=== PATIENT | male | born 1970 | race American Indian/Alaskan Native ===

== ENCOUNTER 2016-08-12 14:01 | Emergency (ER) | payer OTHER ==
--- NOTE | 2016-08-12 18:24 | XRay Report ---
FINAL REPORT EXAM: XR CHEST ROUTINE 2V HISTORY: prod cough TECHNIQUE: PA and lateral chest radiographs 3 images PRIORS: None. FINDINGS: No focal consolidations are seen in the lungs and there are no pleural effusions.The cardiomediastinal silhouette is within normal limits for size and contour. No acute osseous abnormality is identified. IMPRESSION: 1. No definite radiographic evidence of acute cardiopulmonary disease. 2. No focal infiltrate is identified.
--- NOTE | 2016-08-12 20:26 | Emergency Department Report ---
HPI - General Chief Complaint: Upper Respiratory Infection Time Seen by Provider: 08/12/16 19:56 - HPI HPI: 45 y/o male complain of cough and body ache x 3 weeks .pt state the he is been taking nqyuil over the counter without any relief.pt state that he has a sore throat from constantly have to clear throat.pt denies complain of congestion .pt denies any radiation of pain .pt denies any ,n/v/d.denies any fever or chills at present. ED Past Medical Hx - Past Medical History Hx Asthma: Yes - Social History Smoking Status: Former Smoker Substance Use Type: Alcohol - Medications Home Medications: Home Medications Medication Instructions Recorded Confirmed Last Taken Type Permethrin 5% [Acticin 5% CREAM] 1 applicatio TP ONCE #60 gm 04/28/14 Unknown Rx Prednisone [Prednisone 10 mg 10 mg PO .TAPER #1 tab.ds.pk 04/28/14 Unknown Rx (6-Day Pack, 21 Tabs)] Amoxicillin/K Clav Tab [Augmentin 1 tab PO Q12HR #14 tab 08/12/16 Unknown Rx 875 mg] Ibuprofen [Motrin] 800 mg PO Q8HR PRN #15 tablet 08/12/16 Unknown Rx ED Review of Systems ROS: Stated complaint: FLU SX/LEFT SIDE NUMB/TINGLING Other details as noted in HPI Constitutional: denies: chills, fever Eyes: denies: eye pain, eye discharge, vision change ENT: congestion. denies: ear pain, throat pain Respiratory: cough. denies: shortness of breath, wheezing Cardiovascular: denies: chest pain, palpitations Endocrine: no symptoms reported Gastrointestinal: denies: abdominal pain, nausea, diarrhea Genitourinary: denies: urgency, dysuria Musculoskeletal: denies: back pain, joint swelling, arthralgia Skin: denies: rash, lesions Neurological: denies: headache, weakness, paresthesias Psychiatric: denies: anxiety, depression Hematological/Lymphatic: denies: easy bleeding, easy bruising Physical Exam - Physical Exam Vital Signs: Vital Signs 08/12/16 14:11 Temperature 98.9 F Pulse Rate 98 H Respiratory 20 Rate Blood Pressure 132/90 O2 Sat by Pulse 97 Oximetry Physical Exam: GENERAL: The patient is well-developed and well-nourished. Patient is in NAD. HENT: Normocephalic. Atraumatic. Patient has moist mucous membranes. Throat: erythema, and post nasal drip noted .Nasal turbinate swollen with edema. EYES: Extraocular motions are intact, PERRL NECK: Supple. No meningitic signs are noted. There is no adenopathy noted. CHEST/LUNGS: Clear to auscultation bilaterally. No wheezing, rales or rhonchi noted. There is no respiratory distress noted. HEART/CARDIOVASCULAR: Regular rate and rhythm. Normal S1 S2. ABDOMEN: Abdomen is soft, nontender.. Bowel sounds normoactive. There is no abdominal distention. Negative rebound tenderness. : Deferred. SKIN: There is no rash. There is no edema. There is no diaphoresis. NEURO: The patient is A&Ox3. The patient has no focal neurologic deficits. MUSCULOSKELETAL: There is no tenderness or deformity. There is no limitation range of motion. PSYCH: Pt has appropriate mood and affect. ED Course Vital Signs 08/12/16 14:11 Temperature 98.9 F Pulse Rate 98 H Respiratory 20 Rate Blood Pressure 132/90 O2 Sat by Pulse 97 Oximetry ED Medical Decision Making - Medical Decision Making sinusitis Critical care attestation.: If time is entered above; I have spent that time in minutes in the direct care of this critically ill patient, excluding procedure time. ED Disposition Clinical Impression: Sinusitis Qualifiers: Sinusitis location: frontal Chronicity: acute Recurrence: non-recurrent Qualified Code(s): J01.10 - Acute frontal sinusitis, unspecified Disposition: DISCHARGED TO HOME OR SELFCARE Is pt being admited?: No Does the pt Need Aspirin: No Condition: Stable Instructions: Sinusitis (ED) Prescriptions: Amoxicillin/K Clav Tab [Augmentin 875 mg] 1 tab PO Q12HR #14 tab Ibuprofen [Motrin] 800 mg PO Q8HR PRN #15 tablet PRN Reason: Pain Forms: Work/School Release Form(ED) Time of Disposition: 20:32
[2016-08-12 20:36] VITALS: BP 131/87
== END 2016-08-12 22:33 | disposition home or self-care (01) ==
LOC: ED 14:01
DX: J01.10 Acute frontal sinusitis, unspecified (principal); J45.909 Unspecified asthma, uncomplicated; Z87.891 Personal history of nicotine dependence
CPT/HCPCS: 71020

== ENCOUNTER 2016-11-22 09:07 | Emergency (ER) | payer SELFPAY ==
[2016-11-22 09:17] VITALS: BP 136/98
[2016-11-22] MEDS ORDERED: BENADRYL PO ONE (11:17)
[2016-11-22] MEDS ORDERED: DELTASONE PO ONE (11:17)
[2016-11-22] MEDS ORDERED: PERCOCET 5/325 PO ONE (11:17)
--- NOTE | 2016-11-22 11:55 | Emergency Department Report ---
Entered by EVELIN WOODS, acting as scribe for CHRISTELLE BUCK PA. ED Extremity Problem HPI - General Chief complaint: Extremity Problem,Nontraumatic Stated complaint: PROGESSIVE KNEE PAIN/SORE OUTBREAK Time Seen by Provider: 11/22/16 11:23 Source: patient Mode of arrival: Ambulatory Limitations: No Limitations - History of Present Illness Initial comments: 46 y/o male presents to ED c/o bilateral knee pain beginning over 1 year ago, gradually worsening. He denies injury or trauma in the past, and reports 6/10 in severity pain described as throbbing and tingling in quality. He has never followed up with an orthopedist. Pt admits to taking Advil with no relief. He denies fever, chills, or erythema to his knees as well as hip, thigh, back, abdominal, or calf pain. Pt also denies SOB, nausea, vomiting. In addition, pt c /o itching sores to his left outer and inner thigh since one month ago from an unknown cause. No additional complaints MD Complaint: joint paint (knees bilaterally) Onset/Timin -: Gradual, year(s) Location: bilateral lower extremity, knee (bilaterally) History of Same: Yes -: No myalgia, Yes arthralgia, No fever, No associated dyspnea, No associated chest pain Radiation: none Severity scale (0 -10): 6 Quality: other (throbbing, tingling) Consistency: constant Improves with: immobilization Worsens with: walking Associated Symptoms: arthralgias, other (itching sores to inner and outer thigh) . denies: denies other symptoms, chest pain, shortness of breath, fever, myalgias, rash - Related Data Previous Rx's Medication Instructions Recorded Last Taken Type Permethrin 5% [Acticin 5% CREAM] 1 applicatio TP ONCE #60 gm 04/28/14 Unknown Rx Prednisone [Prednisone 10 mg 10 mg PO .TAPER #1 tab.ds.pk 04/28/14 Unknown Rx (6-Day Pack, 21 Tabs)] Amoxicillin/K Clav Tab [Augmentin 1 tab PO Q12HR #14 tab 08/12/16 Unknown Rx 875 mg] Ibuprofen [Motrin] 800 mg PO Q8HR PRN #15 tablet 08/12/16 Unknown Rx traMADol [Ultram] 50 mg PO Q6HR PRN #20 tablet 11/22/16 Unknown Rx Allergies Allergy/AdvReac Type Severity Reaction Status Date / Time No Known Allergies Allergy Verified 04/28/14 16:41 ED Review of Systems Comment: All other systems reviewed and negative Constitutional: denies: chills, fever Respiratory: denies: cough, SOB with exertion, SOB at rest, wheezing Cardiovascular: denies: chest pain, palpitations, edema, syncope Gastrointestinal: denies: nausea, vomiting Musculoskeletal: arthralgia (knees bilaterally). denies: back pain, joint swelling, myalgia Skin: lesions (to inner and outer left thigh). denies: other (erythema) Neurological: denies: numbness, paresthesias, abnormal gait, vertigo ED Past Medical Hx - Past Medical History Previous Medical History?: Yes Hx Asthma: Yes Additional medical history: Chronic knee pain - Surgical History Past Surgical History?: No - Family History Family history: no significant - Social History Smoking Status: Current Every Day Smoker Substance Use Type: Alcohol - Medications Home Medications: Home Medications Medication Instructions Recorded Confirmed Last Taken Type Permethrin 5% [Acticin 5% CREAM] 1 applicatio TP ONCE #60 gm 04/28/14 Unknown Rx Prednisone [Prednisone 10 mg 10 mg PO .TAPER #1 tab.ds.pk 04/28/14 Unknown Rx (6-Day Pack, 21 Tabs)] Amoxicillin/K Clav Tab [Augmentin 1 tab PO Q12HR #14 tab 08/12/16 Unknown Rx 875 mg] Ibuprofen [Motrin] 800 mg PO Q8HR PRN #15 tablet 08/12/16 Unknown Rx traMADol [Ultram] 50 mg PO Q6HR PRN #20 tablet 11/22/16 Unknown Rx ED Physical Exam - General Limitations: No Limitations General appearance: alert, in no apparent distress - Head Head exam: Present: atraumatic, normocephalic - Eye Eye exam: Present: normal appearance, PERRL, EOMI. Absent: scleral icterus, conjunctival injection Pupils: Present: normal accommodation - ENT ENT exam: Present: normal exam, normal orophraynx, mucous membranes moist, TM's normal bilaterally, normal external ear exam - Neck Neck exam: Present: normal inspection, full ROM. Absent: tenderness - Respiratory Respiratory exam: Present: normal lung sounds bilaterally, other (normal work of breathing). Absent: respiratory distress, wheezes, rales, rhonchi, stridor, chest wall tenderness, accessory muscle use - Cardiovascular Cardiovascular Exam: Present: regular rate, normal rhythm, normal heart sounds. Absent: systolic murmur, diastolic murmur - GI/Abdominal GI/Abdominal exam: Present: soft, normal bowel sounds. Absent: distended, tenderness, guarding, rebound - Extremities Exam Extremities exam: Present: normal inspection, full ROM, normal capillary refill. Absent: tenderness, pedal edema, joint swelling, calf tenderness - Expanded Lower Extremity Exam Left Hip exam: Present: normal inspection, full ROM, pelvic stability. Absent: tenderness, laceration, ecchymosis, deformity, crepidus, dislocation, erythema, external rotation, internal rotation, shortening Upper Leg exam: Present: normal inspection, full ROM. Absent: tenderness, swelling, abrasion, laceration, ecchymosis, deformity, crepidus, dislocation, erythema Knee exam: Present: normal inspection, full ROM, full knee extension. Absent: tenderness, swelling, abrasion, laceration, ecchymosis, deformity, crepidus, erythema, effusion Lower Leg exam: Present: normal inspection, full ROM. Absent: tenderness, swelling, abrasion, laceration, ecchymosis, deformity, crepidus, dislocation, erythema, palpable cord, Migue's sign Ankle exam: Present: normal inspection, full ROM. Absent: tenderness, swelling , abrasion, laceration, ecchymosis, deformity, crepidus, dislocation, erythema Foot/Toe exam: Present: normal inspection, full ROM. Absent: tenderness, swelling, abrasion, laceration, ecchymosis, deformity, crepidus, dislocation, erythema, amputation, puncture wound, foreign body, calcaneal tenderness, tenderness at base of 5th metatarsal, nail avulsion, subungual hematoma Neuro vascular tendon exam: Present: no vascular compromise. Absent: pulse deficit, abnormal cap refill, motor deficit, sensory deficit, tendon deficit, extremity cold to touch, pallor, abnormal 2-point discrimination, decreased fine /light touch, foot drop, peroneal nerve deficit, significant pain with passive ROM of distal joint Gait: Positive: observed and normal Right Hip exam: Present: normal inspection, full ROM. Absent: tenderness Upper Leg exam: Present: normal inspection, full ROM. Absent: tenderness, swelling, abrasion, laceration, ecchymosis, deformity, crepidus, dislocation, erythema Knee exam: Present: normal inspection, full ROM, full knee extension. Absent: tenderness, swelling, abrasion, laceration, ecchymosis, deformity, crepidus, dislocation, erythema, effusion Lower Leg exam: Present: normal inspection, full ROM. Absent: tenderness, swelling, abrasion, laceration, ecchymosis, deformity, crepidus, dislocation, erythema, palpable cord, Migue's sign Ankle exam: Present: normal inspection. Absent: full ROM, tenderness, swelling , abrasion, laceration, ecchymosis, deformity, crepidus, dislocation, erythema Foot/Toe exam: Present: normal inspection, full ROM. Absent: tenderness, swelling, abrasion, laceration, ecchymosis, deformity, crepidus, dislocation, erythema, amputation, puncture wound, foreign body, calcaneal tenderness, tenderness at base of 5th metatarsal, nail avulsion, subungual hematoma Neuro vascular tendon exam: Present: no vascular compromise. Absent: pulse deficit, abnormal cap refill, motor deficit, sensory deficit, tendon deficit, extremity cold to touch, pallor, abnormal 2-point discrimination, decreased fine /light touch, foot drop, peroneal nerve deficit, significant pain with passive ROM of distal joint Gait: Positive: observed and normal - Back Exam Back exam: Present: normal inspection, full ROM. Absent: tenderness, CVA tenderness (R), CVA tenderness (L), muscle spasm, paraspinal tenderness, vertebral tenderness, rash noted - Neurological Exam Neurological exam: Present: alert, oriented X3, normal gait, reflexes normal. Absent: motor sensory deficit - Psychiatric Psychiatric exam: Present: normal affect, normal mood - Skin Skin exam: Present: warm, dry, intact, normal color, rash (already healing), other (scabbed over lesions to left inner and outer thigh, dried with no signs of infection, no erythema, no induration, no fluctuance). Absent: erythema, abrasion ED Course Vital Signs 11/22/16 09:11 Temperature 98.2 F Pulse Rate 74 Respiratory 16 Rate Blood Pressure 136/98 O2 Sat by Pulse 96 Oximetry - Reevaluation(s) Reevaluation #1: 11/22/16 11:48 Patient given benadryl 50 mg, percocet 5/325 mg 2 tabs , Deltasone 60 mg po 11/22/16 11:49 ED Medical Decision Making - Medical Decision Making ED Course: Patient here with arthralgia both knees which is chronic and rash that is healing. patient given benadryl 50 mg, percocet 5/325 mg 2 tabs , Deltasone 60 mg po . ED Disposition Clinical Impression: Arthralgia of both knees, Chronic pain of both knees Disposition: DISCHARGED TO HOME OR SELFCARE Is pt being admited?: No Does the pt Need Aspirin: No Condition: Stable Instructions: Arthralgia (ED), Knee Exercises (GEN) Additional Instructions: Please follow up with orthopedic doctor for further evaluation of chronic knee pain Take Ultram as prescribed Prescriptions: traMADol [Ultram] 50 mg PO Q6HR PRN #20 tablet PRN Reason: Pain Referrals: PRIMARY CARE,MD [Primary Care Provider] - 3-5 Days Forms: Accompanied Note, Work/School Release Form(ED) This documentation as recorded by the PEGGY harris AHSAN,accurately reflects the service I personally performed and the decisions made by me,CHRISTELLE BUCK PA.
== END 2016-11-22 12:00 | disposition home or self-care (01) ==
LOC: ED 09:07
DX: M25.561 Pain in right knee (principal); M25.562 Pain in left knee; G89.29 Other chronic pain; J45.909 Unspecified asthma, uncomplicated; F17.200 Nicotine dependence, unspecified, uncomplicated
CPT/HCPCS: 99282; J7512

== ENCOUNTER 2017-11-02 21:21 | Observation (INO) | payer OTHER ==
[2017-11-02] MEDS ORDERED: ATROVENT IH ONE (21:27)
[2017-11-02] MEDS ORDERED: ADRENALIN SUB-Q ONE (21:27)
[2017-11-02] MEDS ORDERED: PROVENTIL IH ONE (21:27)
[2017-11-02] MEDS ORDERED: NACL 0.9% 500 ML 500 ML IV ONE (21:28)
--- NOTE | 2017-11-02 21:39 | Emergency Department Report ---
ED Asthma HPI - General Chief Complaint: Dyspnea/Respdistress Stated Complaint: ANGELA Time Seen by Provider: 11/02/17 21:27 Source: patient, family, EMS (ems notes not available at time of chart dictation) Limitations: Physical Limitation - History of Present Illness Initial Comments: This is a 47-year-old male who is previously known to this provider, brought to the hospital by EMS on positive pressure ventilation for out of hospital asthma attack. Patient given albuterol, steroids, magnesium. Patient indicates chest wall pain with coughing. He further indicates no pulmonary embolus or DVT risk factors. He is continued on BiPAP therapy, given subcutaneous epinephrine, and supportive care. All of the aforementioned greatly improved his symptoms. MD Complaint: "asthma attack", shortness of breath, other -: Gradual Severity: severe Associated Symptoms: dry cough Treatments Prior to Arrival: inhaled bronchodilator, IV steroid, oxygen, CPAP, other (magnesium) - Related Data Previous Rx's Medication Instructions Recorded Last Taken Type Permethrin 5% [Acticin 5% CREAM] 1 applicatio TP ONCE #60 gm 04/28/14 Unknown Rx Prednisone [Prednisone 10 mg 10 mg PO .TAPER #1 tab.ds.pk 04/28/14 Unknown Rx (6-Day Pack, 21 Tabs)] Amoxicillin/K Clav Tab [Augmentin 1 tab PO Q12HR #14 tab 08/12/16 Unknown Rx 875 mg] Ibuprofen [Motrin] 800 mg PO Q8HR PRN #15 tablet 08/12/16 Unknown Rx traMADol [Ultram] 50 mg PO Q6HR PRN #20 tablet 11/22/16 Unknown Rx Allergies Allergy/AdvReac Type Severity Reaction Status Date / Time No Known Allergies Allergy Verified 04/28/14 16:41 ED Review of Systems ROS: Stated complaint: ANGELA Other details as noted in HPI Comment: Unobtainable due to pts medical conditions ED Past Medical Hx - Past Medical History Hx Asthma: Yes Additional medical history: Chronic knee pain - Social History Smoking Status: Current Every Day Smoker Substance Use Type: Alcohol - Medications Home Medications: Home Medications Medication Instructions Recorded Confirmed Last Taken Type Permethrin 5% [Acticin 5% CREAM] 1 applicatio TP ONCE #60 gm 04/28/14 Unknown Rx Prednisone [Prednisone 10 mg 10 mg PO .TAPER #1 tab.ds.pk 04/28/14 Unknown Rx (6-Day Pack, 21 Tabs)] Amoxicillin/K Clav Tab [Augmentin 1 tab PO Q12HR #14 tab 08/12/16 Unknown Rx 875 mg] Ibuprofen [Motrin] 800 mg PO Q8HR PRN #15 tablet 08/12/16 Unknown Rx traMADol [Ultram] 50 mg PO Q6HR PRN #20 tablet 11/22/16 Unknown Rx ED Physical Exam - General General appearance: alert, in distress - Head Head exam: Present: atraumatic, normocephalic - Eye Eye exam: Present: normal appearance - ENT ENT exam: Present: mucous membranes moist - Neck Neck exam: Present: normal inspection - Respiratory Respiratory exam: Present: respiratory distress, wheezes, accessory muscle use - Cardiovascular Cardiovascular Exam: Present: normal rhythm, tachycardia, normal heart sounds. Absent: systolic murmur, diastolic murmur, rubs, gallop - GI/Abdominal GI/Abdominal exam: Present: soft, normal bowel sounds. Absent: distended, tenderness, guarding, rebound, rigid, pulsatile mass - Rectal Rectal exam: Present: deferred - Extremities Exam Extremities exam: Present: normal inspection, full ROM, normal capillary refill. Absent: pedal edema, joint swelling, calf tenderness - Back Exam Back exam: Present: normal inspection, full ROM. Absent: tenderness, CVA tenderness (R), paraspinal tenderness, vertebral tenderness - Neurological Exam Neurological exam: Present: alert, CN II-XII intact, other (Extraocular movements intact. Tongue midline. No facial droop. Facial sensation intact to light touch in the V1, V2, V3 distribution bilaterally. 5 and 5 strength in 4 extremities.. Sensation is intact to light touch in 4 extremities.). Absent : motor sensory deficit - Psychiatric Psychiatric exam: Present: anxious - Skin Skin exam: Present: warm, dry, intact, normal color. Absent: rash ED Course Vital Signs 11/02/17 11/02/17 11/02/17 21:23 21:24 21:30 Temperature Pulse Rate 110 H 108 H Respiratory 24 21 Rate Blood Pressure 150/87 150/87 Blood Pressure [Right] O2 Sat by Pulse 99 100 100 Oximetry 11/02/17 11/02/17 11/02/17 21:36 21:46 22:00 Temperature 98.1 F Pulse Rate 114 H 107 H 101 H Respiratory 28 H 21 20 Rate Blood Pressure 150/80 150/87 146/81 Blood Pressure 150/80 [Right] O2 Sat by Pulse 100 100 100 Oximetry 11/02/17 11/02/17 11/02/17 22:16 22:30 22:46 Temperature Pulse Rate 94 H 96 H 95 H Respiratory 20 21 17 Rate Blood Pressure 146/81 146/81 146/81 Blood Pressure [Right] O2 Sat by Pulse 100 100 100 Oximetry 11/02/17 11/02/17 11/02/17 22:48 22:52 23:00 Temperature Pulse Rate 94 H 101 H Respiratory 18 20 16 Rate Blood Pressure 128/80 Blood Pressure [Right] O2 Sat by Pulse 100 99 98 Oximetry - Reevaluation(s) Reevaluation #1: 11/02/17 23:51 The Hospital physician, Dr. Garcia, accepted the patient to the medical service. ED Medical Decision Making - Lab Data Result diagrams: 11/02/17 21:45 11/02/17 21:45 Vital Signs 11/02/17 11/02/17 11/02/17 21:24 21:36 22:48 Temperature 98.1 F Pulse Rate 110 H 114 H Respiratory 24 28 H 18 Rate Blood Pressure 150/87 150/80 Blood Pressure 150/80 [Right] O2 Sat by Pulse 100 100 100 Oximetry Lab Results 11/02/17 11/02/17 11/02/17 Range/Units 21:45 21:45 21:45 WBC 14.2 H (4.5-11.0) K/mm3 RBC 4.63 (3.65-5.03) M/mm3 Hgb 13.3 (11.8-15.2) gm/dl Hct 40.0 (35.5-45.6) % MCV 87 (84-94) fl MCH 29 (28-32) pg MCHC 33 (32-34) % RDW 13.0 L (13.2-15.2) % Plt Count 167 (140-440) K/mm3 Lymph % (Auto) 19.9 (13.4-35.0) % [place] % (Auto) 7.6 H (0.0-7.3) % Eos % (Auto) 1.5 (0.0-4.3) % Baso % (Auto) 0.7 (0.0-1.8) % Lymph # 2.8 (1.2-5.4) K/mm3 [place] # 1.1 H (0.0-0.8) K/mm3 Eos # 0.2 (0.0-0.4) K/mm3 Baso # 0.1 (0.0-0.1) K/mm3 Seg Neutrophils % 70.3 H (40.0-70.0) % Seg Neutrophils # 10.0 H (1.8-7.7) K/mm3 PT (12.2-14.9) Sec. INR (0.87-1.13) APTT (24.2-36.6) Sec. Sodium 139 (137-145) mmol/L Potassium 3.9 (3.6-5.0) mmol/L Chloride 101.1 (98-107) mmol/L Carbon Dioxide 24 (22-30) mmol/L Anion Gap 18 mmol/L BUN 14 (9-20) mg/dL Creatinine 0.8 (0.8-1.5) mg/dL Estimated GFR > 60 ml/min BUN/Creatinine Ratio 18 % Glucose 94 (75-100) mg/dL Lactic Acid 1.10 (0.7-2.0) mmol/L Calcium 8.9 (8.4-10.2) mg/dL Magnesium 2.50 H (1.7-2.3) mg/dL Total Bilirubin 0.20 (0.1-1.2) mg/dL AST 22 (5-40) units/L ALT 19 (7-56) units/L Alkaline Phosphatase 47 (35-129) units/L Troponin T < 0.010 (0.00-0.029) ng/mL Total Protein 7.1 (6.3-8.2) g/dL Albumin 4.3 (3.9-5) g/dL Albumin/Globulin Ratio 1.5 % /17/18 Range/Units 21:45 WBC (4.5-11.0) K/mm3 RBC (3.65-5.03) M/mm3 Hgb (11.8-15.2) gm/dl Hct (35.5-45.6) % MCV (84-94) fl MCH (28-32) pg MCHC (32-34) % RDW (13.2-15.2) % Plt Count (140-440) K/mm3 Lymph % (Auto) (13.4-35.0) % [place] % (Auto) (0.0-7.3) % Eos % (Auto) (0.0-4.3) % Baso % (Auto) (0.0-1.8) % Lymph # (1.2-5.4) K/mm3 [place] # (0.0-0.8) K/mm3 Eos # (0.0-0.4) K/mm3 Baso # (0.0-0.1) K/mm3 Seg Neutrophils % (40.0-70.0) % Seg Neutrophils # (1.8-7.7) K/mm3 PT 13.2 (12.2-14.9) Sec. INR 0.95 (0.87-1.13) APTT 29.8 (24.2-36.6) Sec. Sodium (137-145) mmol/L Potassium (3.6-5.0) mmol/L Chloride (98-107) mmol/L Carbon Dioxide (22-30) mmol/L Anion Gap mmol/L BUN (9-20) mg/dL Creatinine (0.8-1.5) mg/dL Estimated GFR ml/min BUN/Creatinine Ratio % Glucose (75-100) mg/dL Lactic Acid (0.7-2.0) mmol/L Calcium (8.4-10.2) mg/dL Magnesium (1.7-2.3) mg/dL Total Bilirubin (0.1-1.2) mg/dL AST (5-40) units/L ALT (7-56) units/L Alkaline Phosphatase (35-129) units/L Troponin T (0.00-0.029) ng/mL Total Protein (6.3-8.2) g/dL Albumin (3.9-5) g/dL Albumin/Globulin Ratio % - EKG Data -: EKG Interpreted by Tn - EKG Data When compared to previous EKG there are: previous EKG unavailable 11/02/17 22:55 Sinus, 92 bpm, normal axis, nonspecific ST elevation, pericarditis versus early repolarization. Not consistent with a STEMI - Radiology Data Radiology results: report reviewed, image reviewed X-RAY OF THE CHEST IS NEGATIVE FOR ACUTE DISEASE. - Medical Decision Making Differential diagnosis, including but not limited to: Asthma, bronchitis, status epilepticus Assessment and plan: 47-year-old male with known pulmonary embolus or DVT risk factors, low risk by well's criteria, multiple hospitalizations in the past for asthma, with his typical asthma exacerbation. He is continued on positive pressure ventilation, he is given steroids and magnesium prior to arrival, given subcutaneous epinephrine. He declined/refused an arterial blood gas. His clinical status was improved, and he was able to be weaned from positive pressure ventilation. He is still wheezing and short of breath, and he will therefore be admitted to the hospital for asthma exacerbation. The Hospital physician has been paged to facilitate admission. Critical Care Time: Yes Critical care time in (mins) excluding proc time.: 35 Critical care attestation.: If time is entered above; I have spent that time in minutes in the direct care of this critically ill patient, excluding procedure time. ED Disposition Clinical Impression: Status asthmaticus Qualifiers: Asthma severity: severe Asthma persistence: unspecified Qualified Code(s): J45.902 - Unspecified asthma with status asthmaticus Disposition: 09 OP ADMIT IP TO THIS HOSP Is pt being admited?: Yes Condition: Good Referrals: ELO MORGAN MD [Primary Care Provider] - 3-5 Days
[2017-11-02 22:00] LABS: Basophils # (Auto) 0.1 K/mm3 (0.0-0.1); Basophils % (Auto) 0.7 % (0.0-1.8); Eosinophils # (Auto) 0.2 K/mm3 (0.0-0.4); Eosinophils % (Auto) 1.5 % (0.0-4.3); Hemoglobin 13.3 gm/dl (11.8-15.2); Lymphocytes # (Auto) 2.8 K/mm3 (1.2-5.4); Lymphocytes % (Auto) 19.9 % (13.4-35.0); Mean Corpuscular HGB Conc 33 % (32-34); Mean Corpuscular Hemoglobin 29 pg (28-32); Mean Corpuscular Volume 87 fl (84-94); Monocytes # (Auto) 1.1 K/mm3 (0.0-0.8); Monocytes % (Auto) 7.6 % (0.0-7.3); Platelet Count 167 K/mm3 (140-440); Red Blood Count 4.63 M/mm3 (3.65-5.03)
--- NOTE | 2017-11-02 22:08 | XRay Report ---
FINAL REPORT PROCEDURE: XR CHEST 1V AP TECHNIQUE: Chest radiograph anteroposterior view. CPT 84633 HISTORY: Dyspnea COMPARISON: No prior studies are available for comparison. FINDINGS: Heart: Normal. Mediastinum/Vessels: Normal. Lungs/Pleural space: Normal. Bony thorax: No acute osseous abnormality. Life support devices: None. IMPRESSION: No acute cardiopulmonary abnormality.
[2017-11-02 22:11] LABS: INR 0.95 (0.87-1.13)
[2017-11-02 22:12] LABS: Partial Thromboplastin Time 29.8 Sec. (24.2-36.6)
[2017-11-02 22:16] LABS: Alanine Aminotransferase 19 units/L (7-56); Albumin 4.3 g/dL (3.9-5); BUN/Creatinine Ratio 18; Blood Urea Nitrogen 14 mg/dL (9-20); Calcium 8.9 mg/dL (8.4-10.2); Hemolysis Index 11
[2017-11-03] MEDS ORDERED: SUBLIMAZE IV ONE (00:12)
[2017-11-03] MEDS ORDERED: TORADOL IV ONE (00:12)
[2017-11-03] MEDS: PROVENTIL IH ONE ×2 (00:16→00:19)
[2017-11-03] MEDS ORDERED: TYLENOL PO PRN (01:16)
[2017-11-03] MEDS ORDERED: ULTRAM PO PRN (01:18)
[2017-11-03] MEDS ORDERED: MOTRIN PO PRN (01:18)
[2017-11-03] MEDS ORDERED: NON-FORMULARY (Prednisone [Prednisone 10 Mg (6-Day Pack, 21 Tabs)] 10 MG) PO SCH (01:30)
[2017-11-03] MEDS ORDERED: ACTICIN TP SCH (02:00)
[2017-11-03] MEDS ORDERED: DELTASONE PO SCH ×2 (07:30→14:00)
[2017-11-03] MEDS: PROVENTIL IH PRN ×2 (07:30→11:41)
[2017-11-03] MEDS ORDERED: AUGMENTIN 875 MG PO SCH (10:00)
[2017-11-03] MEDS ORDERED: LEVAQUIN 750MG/150ML 750 MG/150 ML BAG IV SCH (10:00)
--- NOTE | 2017-11-03 10:17 | History and Physical Report ---
CHIEF COMPLAINT: Shortness of breath. HISTORY OF PRESENT ILLNESS: The patient is a 47-year-old male who feels he started suddenly to have shortness of breath yesterday. The patient stated the shortness of breath was associated with cough and chest discomfort. There was no history of fever, no history of chills. Also, the patient denied history of nausea and vomiting and EMS was called and evaluated. The patient was placed on BiPAP and transported into the Emergency Room where he was evaluated and given treatment, but the shortness of breath and wheezing persisted and the patient was presented for admission. PAST MEDICAL HISTORY: Pertinent for asthma. Also, the patient has past medical history of knee pain. FAMILY HISTORY: Noncontributory. SOCIAL HISTORY: The patient drinks alcohol, smokes cigarettes, does not use illicit drugs. MEDICATIONS: The patient is on ____ cream, which he has had applied topically once and also the patient is on prednisone dose pack 10 mg as a 6 days pack. The patient is also on Augmentin 875 mg 1 by mouth every 12 hours and ibuprofen 800 mg by mouth every 8 hours and tramadol 50 mg by mouth every 6 hours. ALLERGIES: There are no known drug allergies. REVIEW OF SYSTEMS: CONSTITUTIONAL: There is no fever, no chills, no diaphoresis. HEENT: There is no headache or sore throat. CARDIOVASCULAR SYSTEM: There is chest discomfort, but no orthopnea. RESPIRATORY SYSTEM: There is shortness of breath and there is cough and there is wheezing. GASTROINTESTINAL SYSTEM: There is no nausea, no vomiting, no abdominal pain, diarrhea or constipation. NEUROLOGICAL SYSTEM: There is no numbness, no dizziness, no altered mental status. MUSCULOSKELETAL SYSTEM: There is no joint pain or swelling. DERMATOLOGICAL SYSTEM: There is no skin rash or itching. GENITOURINARY SYSTEM: There is no dysuria, hematuria, or flank pain. Rest of system review is normal. PHYSICAL EXAMINATION: GENERAL: At the time of exam, the patient was trying to be alert, oriented x 3 and not in acute distress. VITAL SIGNS: Vital signs shows normal temperature of 97.7 degrees Fahrenheit, pulse of 99, respiration rate of 16, blood pressure 101/62, O2 sat of 95% on room air. HEENT: Exam show pupils to be equal, round, reactive to light and accommodation. Extraocular muscles are intact. NECK: Supple with no JVD or carotid bruit. CARDIOVASCULAR SYSTEM: Showed normal first and second heart sounds with no gallops or murmur. RESPIRATORY SYSTEM: Show good air entry on both sides of the lungs with mild respiratory wheezing. GASTROINTESTINAL SYSTEM: Show abdomen to be full, soft, nontender with no organomegaly or rigidity. NEUROLOGICAL: Shows no focal deficits. MUSCULOSKELETAL SYSTEM: Show no joint swelling or tenderness. DERMATOLOGICAL: Showing no skin rash. GENITOURINARY: Showing no costovertebral angle tenderness. PERTINENT LABORATORY DATA AND IMAGING STUDIES: The patient has CBC done with elevated white count of 14,200 with normal hemoglobin, normal hematocrit and normal platelet count with CBC differential showing elevated monocyte count of 7.6% and high segmented neutrophil count of 70.3% with normal coagulation studies. The patient's chemistry showed normal value ____, elevated value of magnesium of 2.5. IMAGING STUDIES: The patient has chest x-ray done that shows no acute cardiopulmonary abnormality. DIAGNOSIS: Asthma exacerbation. PLAN: The patient will be placed on observation in the medical floor and will be on IV Solu-Medrol 60 mg every 8 hours. The patient will also be on IV Levaquin 750 mg daily and will be on albuterol nebulizer every 4 hours as needed for shortness of breath and wheezing. The patient will be on p.r.n. medications like Tylenol 650 mg every 4 hours for fever and headache and will be on oxygen by nasal cannula at 2 liters per minute and the patient's medication has been reconciled and applied accordingly. The patient's diet will be regular diet. JOB# [id number] OCN/NTS
--- NOTE | 2017-11-03 14:14 | Discharge Summary ---
Providers - Providers Date of Admission: 11/03/17 01:11 Date of discharge: 11/03/17 Attending physician: VIC WATSON Primary care physician: ELO MORGAN Hospitalization Condition: Good Pertinent studies: Chest x-ray: No infiltrates Hospital course: This is a 47-year-old male with a history of asthma presented to the hospital by EMS with the BiPAP for worsening breathing difficulty. Patient was continued on BiPAP, given albuterol, steroids, magnesium, subcutaneous epinephrine in the ER. Patient also complains of chest wall pain with coughing. His chest x-ray showed no infiltrates. He was admitted to the hospital in observation status for further management and evaluation. He was weaned off from the BiPAP, placed on frequent nebs, empiric Steroids and antibiotics. His symptom improved significantly overnight, he denies any difficulty breathing, or chest pain. He wanted to go home and follow up with his primary care doctor [facility] [facility]. He was discharged home in stable condition. Discharge diagnosis: Acute severe asthma exacerbation, resolved Acute respiratory failure due to asthma exacerbation, resolved SIRS, due to asthma exacerbation Physical exam: GENERAL: well-developed and well-nourished male lying on bed appeared to be in no discomfort. HEENT: Normocephalic. Atraumatic. No conjunctival congestion or icterus. Patient has moist mucous membranes. NECK: Supple. Trachea midline. CHEST/LUNGS: Clear to auscultated bilaterally, breathing nonlabored. No wheezes crackles or rhonchi. HEART/CARDIOVASCULAR: Regular in rate and rhythm. S1 and S2 positive. ABDOMEN: Abdomen is soft, nontender. Patient has normal bowel sounds. SKIN: There is no rash. Warm and dry. NEURO: No focal motor deficit. Follows command. MUSCULOSKELETAL: No joint effusion or tenderness. EXTRIMITY: No edema, no cyanosis or clubbing. PSYCH: Cooperative. Disposition: DC- TO HOME OR SELFCARE Time spent for discharge: 32 minutes Core Measure Documentation - Palliative Care Palliative Care/ Comfort Measures: Not Applicable - Core Measures Any of the following diagnoses?: none Exam - Constitutional Vitals: Temp Pulse Resp BP Pulse Ox 97.9 F 106 H 18 115/70 96 11/03/17 07:41 11/03/17 11:53 11/03/17 11:53 11/03/17 07:41 11/03/17 07:41 Plan Activity: advance as tolerated Weight Bearing Status: Weight Bear as Tolerated Diet: low fat, low salt Additional Instructions: Follow-up at [facility] in 1 week Follow up with: ELO MORGAN MD [Primary Care Provider] - 3-5 Days Prescriptions: Budesonide/Formoterol Fumarate [Symbicort 160-4.5 Mcg Inhaler] 10.2 gm IH BID 30 Days hfa.aer.ad Levofloxacin [Levaquin TAB] 750 mg PO DAILY #5 tablet predniSONE [Deltasone] 50 mg PO QDAY #5 tab
[2017-11-03 16:02] VITALS: BP 124/73
[2017-11-04] MEDS ORDERED: DELTASONE PO SCH (07:30)
[2017-11-04] MEDS ORDERED: LEVAQUIN PO SCH (10:00)
[2017-11-04] MEDS ORDERED: DELTASONE PO ONE (22:00)
[2017-11-05] MEDS ORDERED: DELTASONE PO SCH (07:30)
[2017-11-06] MEDS ORDERED: DELTASONE PO SCH (07:30)
[2017-11-07] MEDS ORDERED: DELTASONE PO SCH (07:30)
[2017-11-08] MEDS ORDERED: DELTASONE PO ONE (07:30)
== END 2017-11-03 17:55 | disposition home or self-care (01) ==
LOC: ED 21:21 → 3A 11-03 01:11
PROVIDERS: ADMIT Internal Medicine; ATTEND Internal Medicine
DX: J45.901 Unspecified asthma with (acute) exacerbation (principal); J96.00 Acute respiratory failure, unspecified whether with hypoxia or hypercapnia; R65.10 Systemic inflammatory response syndrome (SIRS) of non-infectious origin without acute organ dysfunction; G89.29 Other chronic pain; M25.569 Pain in unspecified knee; F17.210 Nicotine dependence, cigarettes, uncomplicated; Z99.89 Dependence on other enabling machines and devices
CPT/HCPCS: 36415; 71045; 80053; 82140; 83735; 84484; 85025; 85610; 85730; 93005; 93010; 94640; 96365; 96372; 96375; 96376; 99291; 99406; G0378; J0171; J1885; J1956; J2930; J3010

== ENCOUNTER 2019-05-17 19:05 | Observation (INO) | payer OTHER ==
[2019-05-17] MEDS ORDERED: IPRATROPIUM 0.02% NEBU 2.5 ML IH ONE (19:31)
[2019-05-17] MEDS ORDERED: ALBUTEROL 2.5 MG/3 ML NEBU IH ONE (19:31)
[2019-05-17] MEDS ORDERED: methylPREDNISolone Sod Succinate 125 MG/2 ML INJ IV ONE (19:31)
--- NOTE | 2019-05-17 19:32 | Event Note ---
ED Screening Note Date of service: 05/17/19 Time: 19:27 ED Screening Note: c/o cough, sneezing, runny nose x yesterday states SOB that feels like his asthma cough is productive with yellow phlegm +chills/sweats +former smoker This initial assessment/diagnostic orders/clinical plan/treatment(s) is/are subject to change based on patients health status, clinical progression and re- assessment by fellow clinical providers in the ED. Further treatment and workup at subsequent clinical providers discretion. Patient/guardian urged not to elope from the ED as their condition may be serious if not clinically assessed and managed. Initial orders include:
[2019-05-17 20:37] LABS: Hematocrit 38.8 % (35.5-45.6); Hemoglobin 12.9 gm/dl (11.8-15.2); Red Blood Count 4.51 M/mm3 (3.65-5.03)
[2019-05-17 20:38] LABS: Mean Corpuscular HGB Conc 33 % (32-34); Mean Corpuscular Volume 86 fl (84-94); Platelet Count 152 K/mm3 (140-440); Red Cell Distribution Width 13.7 % (13.2-15.2)
[2019-05-17] MEDS ORDERED: MAGNESIUM SULFATE 2 GM/50 ML BAG IV ONE (20:56)
--- NOTE | 2019-05-17 21:00 | Emergency Department Report ---
ED Shortness of Breath HPI - General Chief Complaint: Adult Asthma Stated Complaint: ASTHMA,FLU LIKE SYMPTOMS Time Seen by Provider: 05/17/19 19:27 Source: patient Mode of arrival: Ambulatory Limitations: No Limitations - History of Present Illness Initial Comments: Patient is a 48-year-old male that presents emergency room with complaints of shortness of breath and flu-like symptoms. Patient states he's having fever and chills, sore throat, runny nose, sneezing, coughing and difficulties breathing. Patient states she has asthma. Patient states his symptoms been going on for 2 days. Patient states his amylase at home are not helping. Patient states his symptoms are better with rest and worse with exertion. Patient states he did not take a flu shot this year. Patient states she is now out of asthma medications. Patient denies chest pain. Patient denies nausea vomiting. MD Complaint: shortness of breath, cough -: Sudden Consistency: constant Improves With: rest Worsens With: exertion Known History Of: asthma Context: recent URI Associated Symptoms: fever, cough Treatments Prior to Arrival: bronchodilator - Related Data Home Oxygen Therapy: No Home Medications Medication Instructions Recorded Confirmed Last Taken ALBUTEROL Inhaler 2 puff INHALATION Q4HR PRN 11/03/17 11/03/17 Unknown Previous Rx's Medication Instructions Recorded Last Taken Type Budesonide/Formoterol Fumarate 10.2 gm IH BID 30 Days hfa.aer.ad 11/03/17 Unknown Rx [Symbicort 160-4.5 Mcg Inhaler] levoFLOXacin [Levaquin TAB] 750 mg PO DAILY #5 tablet 11/03/17 Unknown Rx predniSONE [Deltasone] 50 mg PO QDAY #5 tab 11/03/17 Unknown Rx Allergies Allergy/AdvReac Type Severity Reaction Status Date / Time No Known Allergies Allergy Verified 04/28/14 16:41 ED Review of Systems ROS: Stated complaint: ASTHMA,FLU LIKE SYMPTOMS Other details as noted in HPI Constitutional: chills, fever Eyes: denies: eye pain, eye discharge, vision change ENT: throat pain. denies: ear pain Respiratory: cough, shortness of breath, SOB with exertion, SOB at rest, wheezing Cardiovascular: denies: chest pain, palpitations Endocrine: no symptoms reported Gastrointestinal: denies: abdominal pain, nausea, diarrhea Genitourinary: denies: urgency, dysuria Musculoskeletal: denies: back pain, joint swelling, arthralgia Skin: denies: rash, lesions Neurological: denies: headache, weakness, paresthesias Psychiatric: denies: anxiety, depression Hematological/Lymphatic: denies: easy bleeding, easy bruising ED Past Medical Hx - Past Medical History Previous Medical History?: Yes Hx Hypertension: No Hx CVA: No Hx Heart Attack/AMI: No Hx Congestive Heart Failure: No Hx Diabetes: No Hx Deep Vein Thrombosis: No Hx Pulmonary Embolism: No Hx GERD: No Hx Liver Disease: No Hx Renal Disease: No Hx Sickle Cell Disease: No Hx Arthritis: No Hx Headaches / Migraines: No Hx Seizures: No Hx Kidney Stones: No Hx Psychiatric Treatment: No Hx Asthma: Yes Hx COPD: No Hx Tuberculosis: No Hx Dementia: No Hx HIV: No Additional medical history: Chronic knee pain - Surgical History Past Surgical History?: No Hx Coronary Stent: No Hx Open Heart Surgery: No Hx Pacemaker: No Hx Internal Defibrillator: No Hx Cholecystectomy: No Hx Appendectomy: No Hx Breast Surgery: No - Family History Family history: no significant - Social History Smoking Status: Former Smoker Substance Use Type: None - Medications Home Medications: Home Medications Medication Instructions Recorded Confirmed Last Taken Type ALBUTEROL Inhaler 2 puff INHALATION Q4HR PRN 11/03/17 11/03/17 Unknown History Budesonide/Formoterol Fumarate 10.2 gm IH BID 30 Days hfa.aer.ad 11/03/17 Unknown Rx [Symbicort 160-4.5 Mcg Inhaler] levoFLOXacin [Levaquin TAB] 750 mg PO DAILY #5 tablet 11/03/17 Unknown Rx predniSONE [Deltasone] 50 mg PO QDAY #5 tab 11/03/17 Unknown Rx ED Physical Exam - General Limitations: No Limitations General appearance: alert, in distress - Head Head exam: Present: atraumatic, normocephalic - Eye Eye exam: Present: normal appearance - ENT ENT exam: Present: mucous membranes moist - Neck Neck exam: Present: normal inspection - Respiratory Respiratory exam: Present: respiratory distress, wheezes - Cardiovascular Cardiovascular Exam: Present: regular rate, normal rhythm. Absent: systolic murmur, diastolic murmur, rubs, gallop - GI/Abdominal GI/Abdominal exam: Present: soft, normal bowel sounds - Rectal Rectal exam: Present: deferred - Extremities Exam Extremities exam: Present: normal inspection - Back Exam Back exam: Present: normal inspection - Neurological Exam Neurological exam: Present: alert, oriented X3 - Psychiatric Psychiatric exam: Present: normal affect, normal mood - Skin Skin exam: Present: warm, dry, intact, normal color. Absent: rash ED Course Vital Signs 05/17/19 05/17/19 19:08 19:47 Temperature 98.8 F Pulse Rate 102 H Pulse Rate [ 91 H Anterior Bilateral Throughout] Respiratory 20 Rate Respiratory 20 Rate [Anterior Bilateral Throughout] Blood Pressure 135/89 O2 Sat by Pulse 92 Oximetry - Reevaluation(s) Reevaluation #1: pt still wheezing. Patient will be given another breathing treatment. I discussed all results with patient. I discussed plan of care with patient. Patient agrees with plan of care. Patient will be admitted to the hospital service. 05/17/19 21:47 - Consultations Consultation #1: Hospitalist consult for admission. Hospitalist admit patient. 05/17/19 21:56 ED Medical Decision Making - Lab Data Result diagrams: 05/17/19 20:17 05/17/19 20:17 - Radiology Data Radiology results: report reviewed, image reviewed interpreted by me: No acute findings on chest x-ray - Medical Decision Making Patient is a 48-year-old male with known asthma presents emergency room with complaints of shortness of breath and difficulty breathing as well as flulike symptoms. Patient found to be in status asthmaticus. Patient given multiple medications. Patient admitted to the hospital service. Patient's chest x-ray negative. Patient's labs unremarkable. Patient still wheezing after multiple therapies. - Differential Diagnosis shortness of breath. Difficulties breathing. Wheezing. Status asthmaticu Critical Care Time: Yes Critical care time in (mins) excluding proc time.: 35 Critical care attestation.: If time is entered above; I have spent that time in minutes in the direct care o f this critically ill patient, excluding procedure time. Critical Care Time: 35 minutes ED Disposition Clinical Impression: SOB (shortness of breath), Difficulty breathing Status asthmaticus Qualifiers: Asthma severity: severe Asthma persistence: persistent Qualified Code(s): J45.52 - Severe persistent asthma with status asthmaticus Fever Qualifiers: Fever type: unspecified Qualified Code(s): R50.9 - Fever, unspecified Disposition: -09 OP ADMIT IP TO THIS HOSP Is pt being admited?: Yes Does the pt Need Aspirin: No Condition: Critical Time of Disposition: 21:50
[2019-05-17 21:02] LABS: BUN/Creatinine Ratio 22; Blood Urea Nitrogen 20 mg/dL (9-20); Hemolysis Index 133
--- NOTE | 2019-05-17 21:24 | XRay Report ---
CHEST 2 VIEWS INDICATION / CLINICAL INFORMATION: MAIN: hypoxia, cough, OSB Sore throat, runny nose, sneezing, coughing, ANGELA X 2 days. COMPARISON: Chest x-ray 11/02/2017 FINDINGS: SUPPORT DEVICES: None. HEART / MEDIASTINUM: No significant abnormality. LUNGS / PLEURA: No significant pulmonary or pleural abnormality. No pneumothorax. ADDITIONAL FINDINGS: No significant additional findings. IMPRESSION: 1. No acute findings. Signer Name: Jonathan Bishop MD Signed: 05/17/2019 9:19 PM Workstation Name: [employer]
[2019-05-17] MEDS ORDERED: ONDANSETRON 4 MG/2 ML INJ IV PRN (22:56)
[2019-05-17] MEDS ORDERED: guaiFENesin 100 MG/5 ML ORAL LIQD PO PRN (22:56)
[2019-05-18] MEDS: ACETAMINOPHEN 325 MG TAB PO PRN ×2 (00:18→12:22)
[2019-05-18] MEDS: methylPREDNISolone Sod Succinate 125 MG/2 ML INJ IV SCH ×3 (05:35→22:08)
[2019-05-18] MEDS: IPRATROPIUM/ALBUTEROL SULFATE 3 ML AMPUL.NEB IH SCH ×4 (05:43→19:36)
--- NOTE | 2019-05-18 07:29 | History and Physical Report ---
CHIEF COMPLAINT: Shortness of breath. HISTORY OF PRESENT ILLNESS: The patient is a 48-year-old male with past medical history of asthma, presenting with shortness of breath, congestion and flu-like symptoms. The patient admitted to having fever and chills as well as sore throat with runny nose and sneezing. There was no history of chest pain. There was also no history of nausea, vomiting and the patient's symptom has been going on for 2 days and the patient said his symptoms are better with rest and the patient admitted that he has not taken flu shot for the year yet and has run out of his asthma medication and presented for evaluation. The patient said his symptoms initially started with coughing and congestion and then developed into shortness of breath. PAST MEDICAL HISTORY: Pertinent for asthma. Also, the patient has past medical history of chronic knee pain. PAST SURGICAL HISTORY: Unremarkable. FAMILY HISTORY: Noncontributory. SOCIAL HISTORY: The patient is a former cigarette smoker who does not smoke anymore. MEDICATIONS: The patient was formerly on Symbicort 160/4.5 mcg twice daily and Levaquin 750 mg daily as well as prednisone 50 mg daily. The patient said he ran out of his medication. ALLERGIES: THE PATIENT IS ALLERGIC TO SHELLFISH DERIVATIVES. REVIEW OF SYSTEMS: CONSTITUTIONAL: There is fever. There are chills, but no diaphoresis. HEENT: There is no headache or sore throat. CARDIOVASCULAR SYSTEM: There is no chest pain or orthopnea. RESPIRATORY SYSTEM: Shortness of breath is present. Cough is present. Congestion is present. Sneezing is present. GASTROINTESTINAL SYSTEM: There is no nausea, no vomiting, no abdominal pain, diarrhea or constipation. NEUROLOGICAL SYSTEM: There is no numbness, no dizziness, no altered mental status. MUSCULOSKELETAL SYSTEM: There is no joint pain or swelling. DERMATOLOGICAL SYSTEM: There is no skin rash or itching. GENITOURINARY SYSTEM: There is no dysuria, hematuria, or flank pain. Rest of system review is normal. PHYSICAL EXAMINATION: GENERAL: At the time of exam, the patient was found to be alert, oriented x 3 and in mild distress due to shortness of breath. VITAL SIGNS: Shows temperature of 98.8 degrees Fahrenheit, pulse of 102, respirations 20, blood pressure 135/89, O2 sat of 92% on room air. HEENT: Showed pupils to be equal, round, reactive to light and accommodating. Extraocular muscles are intact. NECK: Supple with no JVD or carotid bruit. CARDIOVASCULAR SYSTEM: Showed normal first and second heart sounds with no gallops or murmurs. RESPIRATORY SYSTEM: Showed reduced air entry on both sides of the lungs with respiratory wheezing and decreased movement of the respiratory muscles in the chest wall. GASTROINTESTINAL SYSTEM: Show abdomen to be full, soft, nontender with no organomegaly or rigidity. NEUROLOGIC: Shows no focal deficit. MUSCULOSKELETAL SYSTEM: Show no joint swelling or tenderness. DERMATOLOGICAL SYSTEM: Showed no skin rash. GENITOURINARY SYSTEM: Showing no costovertebral angle tenderness. PERTINENT LABORATORY AND IMAGING STUDIES: The patient had chest x-ray done that shows no acute cardiopulmonary lesion. Lab results, the patient has CBC done that came back unremarkable. The patient's chemistry was unremarkable and the patient's serology test for flu or influenza came back negative. DIAGNOSIS: Asthma exacerbation. PLAN OF CARE: 1. The patient will be placed on observation in the medical [place]. 2. The patient will be on Duo nebulizer q.i.d. 3. The patient will be on IV Levaquin 750 mg daily. 4. The patient will be on Solu-Medrol 60 mg IV every 8 hours. 5. The patient will be on Robitussin 200 mg by mouth every 4 hours as needed for cough and will also be on Tylenol 650 mg by mouth every 4 hours as needed for fever and headache. 6. The patient will be on heparin 5000 units subcutaneous q. 12 hours for DVT prophylaxis. 7. The patient will be on oxygen by nasal cannula 2 liters per minute. 8. The patient's diet will be regular diet. JOB# [id number] OCN/NTS
[2019-05-18] MEDS: HEPARIN 5,000 UNIT/1 ML VIAL SUB-Q SCH ×2 (10:00→22:18)
[2019-05-18] MEDS ORDERED: ALBUTEROL 2.5 MG/3 ML NEBU IH PRN (10:34)
[2019-05-18] MEDS ORDERED: FLU VACC QUAD 2019-20 (3 YR UP)/PF 60 MCG/0.5 ML SYRINGE IM ONE (12:00)
[2019-05-18] MEDS ORDERED: PNEUMOCOCCAL 23 Valent 0.5 ML VIAL IM ONE (12:00)
--- NOTE | 2019-05-18 15:04 | Progress Note ---
Assessment and Plan Assessment and plan: 48-year-old man with history of persistent asthma, uses inhaler daily. Who presents with shortness of breath and wheezing. States that he has no insurance and has never been able to afford Advair or Symbicort or Dulera which have been prescribed for him in the past. He only takes albuterol at home. Diagnosis Asthma exacerbation Acute hypoxic respiratory failure Plan Continue steroids and nebs Continue oxygen supplementation, wean as tolerated DVT prophylaxis, heparin subcu Patient states that he is getting insurance at his job next month. History Interval history: Review of systems Constitutional: No fevers, no malaise, no joint pains CVS: No chest pain, no orthopnea, no pedal edema GI: No abdominal pain, no diarrhea, no vomiting, no constipation Respiratory: Complaining of shortness of breath and wheezing Hospitalist Physical - Physical exam Narrative exam: General.: Appears well, mild distress HEENT: Moist mucous membranes, extraocular muscles intact, no lymphadenopathy Neck: supple Cardiac: S1-S2 heard Lungs: Decreased air entry, wheezing throughout Abdomen: soft , nontender, nondistended, bowel sounds positive Extremities: no edema clubbing or cyanosis Skin: no rash or lesions Neurologic: no gross focal deficits Psych: calm, and cooperative - Constitutional Vitals: Temp Pulse Resp BP Pulse Ox 98.8 F 101 H 20 130/69 89 05/18/19 11:22 05/18/19 14:27 05/18/19 14:27 05/18/19 11:22 05/18/19 11:22 Results - Labs CBC & Chem 7: 05/17/19 20:17 05/17/19 20:17 Labs: Laboratory Last Values WBC 7.5 K/mm3 (4.5-11.0) 05/17/19 20:17 RBC 4.51 M/mm3 (3.65-5.03) 05/17/19 20:17 Hgb 12.9 gm/dl (11.8-15.2) 05/17/19 20:17 Hct 38.8 % (35.5-45.6) 05/17/19 20:17 MCV 86 fl (84-94) 05/17/19 20:17 MCH 29 pg (28-32) 05/17/19 20:17 MCHC 33 % (32-34) 05/17/19 20:17 RDW 13.7 % (13.2-15.2) 05/17/19 20:17 Plt Count 152 K/mm3 (140-440) 05/17/19 20:17 Sodium 139 mmol/L (137-145) 05/17/19 20:17 Potassium 4.5 mmol/L (3.6-5.0) 05/17/19 20:17 Chloride 106.2 mmol/L (98-107) 05/17/19 20:17 Carbon Dioxide 23 mmol/L (22-30) 05/17/19 20:17 Anion Gap 14 mmol/L 05/17/19 20:17 BUN 20 mg/dL (9-20) 05/17/19 20:17 Creatinine 0.9 mg/dL (0.8-1.5) 05/17/19 20:17 Estimated GFR > 60 ml/min 05/17/19 20:17 BUN/Creatinine Ratio 22 % 05/17/19 20:17 Glucose 107 mg/dL (75-100) H 05/17/19 20:17 Lactic Acid 0.70 mmol/L (0.7-2.0) 05/17/19 20:17 Calcium 9.0 mg/dL (8.4-10.2) 05/17/19 20:17 Influenza A (Rapid) Negative (Negative) 05/17/19 Unknown Influenza B (Rapid) Negative (Negative) 05/17/19 Unknown Active Medications - Current Medications Current Medications: Generic Name Dose Route Start Last Admin Trade Name Freq PRN Reason Stop Dose Admin Acetaminophen 650 mg 05/17/19 22:55 05/18/19 12:22 Tylenol PO 650 mg Q4H PRN Administration Fever >101 Albuterol 2.5 mg 05/18/19 10:34 Proventil IH Q4HRT PRN Shortness Of Breath Albuterol/Ipratropium 1 ampul 05/18/19 14:00 05/18/19 14:05 Duoneb *Not For Prn Use* IH 1 ampul TIDRT WILIAN Administration Guaifenesin 200 mg 05/17/19 22:56 05/18/19 00:18 Robitussin PO 200 mg Q4H PRN Administration Cough Heparin Sodium (Porcine) 5,000 unit 05/18/19 10:00 05/18/19 10:00 Heparin SUB-Q 5,000 unit Q12HR WILIAN Administration Levofloxacin/Dextrose 750 mg in 150 mls @ 100 mls/hr 05/18/19 10:00 05/18/19 10:01 Levaquin 750mg/150ml IV 100 mls/hr Q24HR WILIAN Administration Protocol Methylprednisolone Sodium Succinate 60 mg 05/18/19 06:00 05/18/19 13:48 Solu-Medrol IV 60 mg Q8HR WILIAN Administration Ondansetron HCl 4 mg 05/17/19 22:56 Zofran IV Q8H PRN Nausea And Vomiting
[2019-05-19 05:10] VITALS: BP 114/61
[2019-05-19] MEDS: methylPREDNISolone Sod Succinate 125 MG/2 ML INJ IV SCH (06:24)
[2019-05-19] MEDS: IPRATROPIUM/ALBUTEROL SULFATE 3 ML AMPUL.NEB IH SCH ×2 (08:36→14:48)
[2019-05-19] MEDS: HEPARIN 5,000 UNIT/1 ML VIAL SUB-Q SCH (09:53)
--- NOTE | 2019-05-19 10:14 | Discharge Summary ---
Providers - Providers Date of Admission: 05/17/19 21:58 Attending physician: JACQUELINE ONEIL MD Primary care physician: WOOD MILLER Hospitalization Condition: Good Hospital course: 48-year-old man with history of persistent asthma, uses inhaler daily. Who presents with shortness of breath and wheezing. States that he has no insurance and has never been able to afford Advair or Symbicort or Dulera which have been prescribed for him in the past. He only takes albuterol at home. Diagnosis Asthma exacerbation Acute hypoxic respiratory failure Nonadherence to medications due to lack of insurance Plan He received medical treatment for asthma exacerbation. He improved, he was weaned off oxygen prior to discharge. Preventative health counseling performed for 17 minutes DVT prophylaxis, heparin subcu Patient states that he is getting insurance at his job next month and will be more adherent with his medications. Disposition: - TO HOME OR SELFCARE Time spent for discharge: 35 minutes Core Measure Documentation - Palliative Care Palliative Care/ Comfort Measures: Not Applicable - Core Measures Any of the following diagnoses?: none Exam - Constitutional Vitals: Temp Pulse Resp BP Pulse Ox 98.1 F 80 18 114/61 95 05/19/19 04:44 05/19/19 08:36 05/19/19 08:36 05/19/19 04:44 05/19/19 09:11 General appearance: Present: no acute distress, well-nourished - EENT Eyes: Present: PERRL ENT: hearing intact, clear oral mucosa - Neck Neck: Present: supple, normal ROM - Respiratory Respiratory effort: normal Respiratory: bilateral: CTA - Cardiovascular Heart Sounds: Present: S1 & S2. Absent: rub, click - Extremities Extremities: pulses symmetrical, No edema Peripheral Pulses: within normal limits - Abdominal General gastrointestinal: Present: soft, non-tender, non-distended, normal bowel sounds Male genitourinary: Present: normal - Integumentary Integumentary: Present: clear, warm, dry - Musculoskeletal Musculoskeletal: gait normal, strength equal bilaterally - Psychiatric Psychiatric: appropriate mood/affect, intact judgment & insight - Neurologic Neurologic: CNII-XII intact, moves all extremities Plan Follow up with: PRIMARY CARE, [Primary Care Provider] - 3-5 Days Forms: Work/School Release Form Prescriptions: Fluticasone/Salmeterol [Advair Diskus 250-50 mcg] 1 puff IH BID #1 disk.w.dev ALBUTEROL Inhaler 2 puff INHALATION Q4HR PRN #1 PRN Reason: Shortness Of Breath Prednisone [predniSONE 5 mg (6-Day Pack, 21 Tabs)] 5 mg PO .TAPER #1 tab.ds.pk ALBUTEROL NEB's [Proventil 0.083% NEBS] 2.5 mg IH TID PRN #90 neb PRN Reason: Wheezing Montelukast [Singulair] 10 mg PO QPM #30 tablet Other Discharge Orders: Nebulizer (Amb) Location: None Selected
== END 2019-05-19 14:05 | disposition home or self-care (01) ==
LOC: ED 19:05 → 3A 21:58
PROVIDERS: ADMIT Internal Medicine; ATTEND Internal Medicine
DX: J96.01 Acute respiratory failure with hypoxia (principal); J45.901 Unspecified asthma with (acute) exacerbation; M25.569 Pain in unspecified knee; G89.29 Other chronic pain; Z87.891 Personal history of nicotine dependence; Z23 Encounter for immunization
CPT/HCPCS: 36415; 71046; 80048; 82140; 85027; 87400; 90471; 90686; 90732; 94640; 94644; 94760; 96365; 96366; 96367; 96372; 96375; 96376; 99291; G0378; J1644; J1956; J2930; J3475

== ENCOUNTER 2019-11-13 07:55 | Emergency (ER) | payer SELFPAY ==
[2019-11-13 08:03] VITALS: BP 141/95
[2019-11-13] MEDS ORDERED: IPRATROPIUM 0.02% NEBU 2.5 ML IH ONE (08:34)
[2019-11-13] MEDS ORDERED: ALBUTEROL 2.5 MG/3 ML NEBU IH ONE (08:34)
[2019-11-13] MEDS ORDERED: predniSONE 20 MG TAB PO ONE (08:34)
--- NOTE | 2019-11-13 09:04 | XRay Report ---
CHEST PA AND LATERAL VIEWS INDICATION: wheezing/sob. COMPARISON: 05/17/2019 FINDINGS: Support devices: None Heart: Normal and unchanged Lungs/Pleura: No acute pulmonary or pleural findings. IMPRESSION: 1. No significant abnormality and no interval change. Signer Name: Andrea Jones MD Signed: 11/13/2019 9:00 AM Workstation Name: [id number]
--- NOTE | 2019-11-13 09:52 | Emergency Department Report ---
ED Asthma HPI - General Chief Complaint: Adult Asthma Stated Complaint: ASTHMA Time Seen by Provider: 11/13/19 08:33 Source: patient Mode of arrival: Ambulatory Limitations: No Limitations - History of Present Illness Initial Comments: This is a 49-year-old male nontoxic, well nourished in appearance, no acute signs of distress presents to the ED with c/o of acute on chronic asthma exacerbation. Patient stated he is out of her albuterol inhaler 1 month. Patient denies any cough. Patient denies any sick contact. Patient denies any recent travels, long car, recent hospital stays. Patient denies any calf pain or calf tenderness. Patient denies any chest pain, short of breath, fever, chills, nausea, vomiting, hemoptysis, numbness, tingling, headache or stiff neck. Past medical history includes asthma. Denies any drug allergies. MD Complaint: "asthma attack", wheezing -: days(s) Asthma History: childhood onset Severity: mild Context: none known Associated Symptoms: none. denies: productive cough, dry cough, fever, chest pain, hemoptysis, leg edema, syncope - Related Data Previous Rx's Medication Instructions Recorded Last Taken Type ALBUTEROL Inhaler 2 puff INHALATION Q4HR PRN #1 05/19/19 Unknown Rx ALBUTEROL NEB's [Proventil 0.083% 2.5 mg IH TID PRN #90 neb 05/19/19 Unknown Rx NEBS] Fluticasone/Salmeterol [Advair 1 puff IH BID #1 disk.w.dev 05/19/19 Unknown Rx Diskus 250-50 mcg] Montelukast [Singulair] 10 mg PO QPM #30 tablet 05/19/19 Unknown Rx Prednisone [predniSONE 5 mg (6-Day 5 mg PO .TAPER #1 tab.ds.pk 05/19/19 Unknown Rx Pack, 21 Tabs)] Albuterol INH(or & Nicu Only) 2 puff IH QID PRN #8.5 gram 11/13/19 Unknown Rx [ProAir HFA Inhaler] Prednisone [predniSONE 10 mg 10 mg PO .TAPER #1 tab.ds.pk 11/13/19 Unknown Rx (6-Day Pack, 21 Tabs)] Allergies Allergy/AdvReac Type Severity Reaction Status Date / Time shellfish derived Allergy Anaphylaxis Verified 05/18/19 01:03 ED Review of Systems ROS: Stated complaint: ASTHMA Other details as noted in HPI Constitutional: denies: chills, fever Eyes: denies: eye pain, eye discharge, vision change ENT: denies: ear pain, throat pain Respiratory: wheezing. denies: cough, shortness of breath Cardiovascular: denies: chest pain, palpitations Endocrine: no symptoms reported Gastrointestinal: denies: abdominal pain, nausea, vomiting, diarrhea Genitourinary: denies: urgency, dysuria Musculoskeletal: denies: back pain, joint swelling, arthralgia Skin: denies: rash, lesions Neurological: denies: headache, weakness, paresthesias Psychiatric: denies: anxiety, depression Hematological/Lymphatic: denies: easy bleeding, easy bruising ED Past Medical Hx - Past Medical History Previous Medical History?: Yes Hx Hypertension: No Hx CVA: No Hx Heart Attack/AMI: No Hx Congestive Heart Failure: No Hx Diabetes: No Hx Deep Vein Thrombosis: No Hx Pulmonary Embolism: No Hx GERD: No Hx Liver Disease: No Hx Renal Disease: No Hx Sickle Cell Disease: No Hx Arthritis: No Hx Headaches / Migraines: No Hx Seizures: No Hx Kidney Stones: No Hx Psychiatric Treatment: No Hx Asthma: Yes Hx COPD: No Hx Tuberculosis: No Hx Dementia: No Hx HIV: No Additional medical history: Chronic knee pain - Surgical History Past Surgical History?: No Hx Coronary Stent: No Hx Open Heart Surgery: No Hx Pacemaker: No Hx Internal Defibrillator: No Hx Cholecystectomy: No Hx Appendectomy: No Hx Breast Surgery: No - Social History Smoking Status: Former Smoker Substance Use Type: None - Medications Home Medications: Home Medications Medication Instructions Recorded Confirmed Last Taken Type ALBUTEROL Inhaler 2 puff INHALATION Q4HR PRN #1 05/19/19 Unknown Rx ALBUTEROL NEB's [Proventil 0.083% 2.5 mg IH TID PRN #90 neb 05/19/19 Unknown Rx NEBS] Fluticasone/Salmeterol [Advair 1 puff IH BID #1 disk.w.dev 05/19/19 Unknown Rx Diskus 250-50 mcg] Montelukast [Singulair] 10 mg PO QPM #30 tablet 05/19/19 Unknown Rx Prednisone [predniSONE 5 mg (6-Day 5 mg PO .TAPER #1 tab.ds.pk 05/19/19 Unknown Rx Pack, 21 Tabs)] Albuterol INH(or & Nicu Only) 2 puff IH QID PRN #8.5 gram 11/13/19 Unknown Rx [ProAir HFA Inhaler] Prednisone [predniSONE 10 mg 10 mg PO .TAPER #1 tab.ds.pk 11/13/19 Unknown Rx (6-Day Pack, 21 Tabs)] ED Physical Exam - General Limitations: No Limitations General appearance: alert, in no apparent distress - Head Head exam: Present: atraumatic, normocephalic - Neck Neck exam: Present: normal inspection, full ROM. Absent: tenderness, meningismus, lymphadenopathy - Respiratory Respiratory exam: Present: normal lung sounds bilaterally, wheezes. Absent: respiratory distress, rales, rhonchi, stridor, chest wall tenderness, accessory muscle use, decreased breath sounds, prolonged expiratory - Cardiovascular Cardiovascular Exam: Present: regular rate, normal rhythm, normal heart sounds. Absent: bradycardia, tachycardia, irregular rhythm, systolic murmur, diastolic murmur, rubs, gallop - Extremities Exam Extremities exam: Present: normal inspection, full ROM - Back Exam Back exam: Present: normal inspection, full ROM - Neurological Exam Neurological exam: Present: alert, oriented X3, normal gait - Psychiatric Psychiatric exam: Present: normal affect, normal mood - Skin Skin exam: Present: warm, dry, intact, normal color. Absent: rash ED Course Vital Signs 11/13/19 08:01 Temperature 98.1 F Pulse Rate 63 Respiratory 16 Rate Blood Pressure 141/95 O2 Sat by Pulse 98 Oximetry - Reevaluation(s) Reevaluation #1: 11/13/19 09:51 Patient is speaking in full sentences with no signs of distress noted. ED Medical Decision Making - Medical Decision Making This is a 49-year-old male that presents with asthma exacerbation. Patient is stable and was examined by me. Chest x-ray has been obtained and dictated by the radiologist within normal limits. Patient is notified of the x-ray report with no questions noted by the patient. Patient did receive breathing treatment and steroids in the ED which patient the symptoms has resolved and subsided. Posttreatment and there is no wheezing upon auscultation. Patient is discharged with albuterol and prednisone. Patient was referred to Follow-up with a primary care doctor in 3-5 days or if symptoms worsen and continue return to emergency room as soon as possible. At time of discharge, the patient does not seem toxic or ill in appearance. No acute signs of distress noted. Patient agrees to discharge treatment plan of care. No further questions noted by the patient. This chart is dictated with using [employer] Critical care attestation.: If time is entered above; I have spent that time in minutes in the direct care of this critically ill patient, excluding procedure time. ED Disposition Clinical Impression: Asthma exacerbation Qualifiers: Asthma severity: mild Asthma persistence: intermittent Qualified Code(s): J45.21 - Mild intermittent asthma with (acute) exacerbation Disposition: TO HOME OR SELFCARE Is pt being admited?: No Does the pt Need Aspirin: No Condition: Stable Instructions: Asthma (ED) Additional Instructions: Follow-up with a primary care doctor in 3-5 days or if symptoms worsen and continue return to emergency room as soon as possible. Prescriptions: Prednisone [predniSONE 10 mg (6-Day Pack, 21 Tabs)] 10 mg PO .TAPER #1 tab.ds.pk Albuterol INH(or & Nicu Only) [ProAir HFA Inhaler] 2 puff IH QID PRN #8.5 gram PRN Reason: Shortness Of Breath Referrals: PRIMARY CAREMD [Primary Care Provider] - 3-5 Days RASHAWN MOSELEY MD [Staff Physician] - 3-5 Days [facility] [Provider Group] - 3-5 Days Forms: Work/School Release Form(ED)
== END 2019-11-13 10:47 | disposition home or self-care (01) ==
LOC: ED 07:55
DX: J45.901 Unspecified asthma with (acute) exacerbation (principal); Z79.899 Other long term (current) drug therapy; Z87.891 Personal history of nicotine dependence; Z91.013 Allergy to seafood
CPT/HCPCS: 71046; 94640; 99283; J7512

== ENCOUNTER 2020-03-08 13:03 | Emergency (ER) | payer SELFPAY ==
[2020-03-08 13:21] VITALS: BP 147/87
[2020-03-08] MEDS ORDERED: IPRATROPIUM 0.02% NEBU 2.5 ML IH ONE (14:08)
[2020-03-08] MEDS ORDERED: methylPREDNISolone Sod Succinate 125 MG/2 ML INJ IM ONE (14:08)
[2020-03-08] MEDS ORDERED: ALBUTEROL 2.5 MG/3 ML NEBU IH ONE (14:08)
[2020-03-08] MEDS ORDERED: predniSONE 20 MG TAB PO ONE (14:19)
--- NOTE | 2020-03-08 14:23 | Emergency Department Report ---
ED General Adult HPI - General Chief complaint: Adult Asthma Stated complaint: ASTHMA/COLD SYM Time Seen by Provider: 03/08/20 14:00 Source: patient Mode of arrival: Ambulatory Limitations: No Limitations - History of Present Illness Initial comments: 49-year-old -[place] male patient with history of asthma presents with complaints of wheezing, runny nose, and sore throat x3 days. Patient denies any cough or chest pain and states this feels like his asthma. He states he ran out of his albuterol inhaler about a week ago. Patient also reports he was tested for COVID-19 a few days ago and his results came back negative today. He does report mild shortness of breath, but he denies any loss of smell/taste, hemoptysis, or fever/chills/sweats. He rates his throat pain as a 2/10 in severity and states it feels like there is mucus stuck in his throat. He denies any facial pain or pressure. -: Gradual - Related Data Previous Rx's Medication Instructions Recorded Last Taken Type ALBUTEROL Inhaler 2 puff INHALATION Q4HR PRN #1 05/19/19 Unknown Rx Montelukast [Singulair] 10 mg PO QPM #30 tablet 05/19/19 Unknown Rx Fluticasone/Salmeterol [Advair 1 puff IH BID #1 disk.w.dev 02/08/20 Unknown Rx Diskus 250-50 mcg] Prednisone [predniSONE 10 mg 10 mg PO .TAPER #1 tab.ds.pk 02/08/20 Unknown Rx (6-Day Pack, 21 Tabs)] ALBUTEROL NEB's [Proventil 0.083% 2.5 mg IH TID PRN #90 neb 03/08/20 Unknown Rx NEBS] Albuterol Mdi (or & Nicu Only) 2 puff IH QID PRN #8.5 gram 03/08/20 Unknown Rx [ProAir HFA Inhaler] Prednisone [predniSONE 5 mg (6-Day 5 mg PO .TAPER #1 tab.ds.pk 03/08/20 Unknown Rx Pack, 21 Tabs)] Allergies Allergy/AdvReac Type Severity Reaction Status Date / Time shellfish derived Allergy Anaphylaxis Verified 02/08/20 07:09 ED Review of Systems ROS: Stated complaint: ASTHMA/COLD SYM Other details as noted in HPI Constitutional: other (Denies body). denies: chills, fever, malaise ENT: throat pain. denies: dental pain Respiratory: shortness of breath, wheezing. denies: cough Cardiovascular: denies: chest pain, palpitations, edema, syncope Gastrointestinal: denies: abdominal pain, nausea, vomiting, diarrhea Skin: denies: rash Neurological: denies: headache, weakness ED Past Medical Hx - Past Medical History Previous Medical History?: No Hx Hypertension: No Hx CVA: No Hx Heart Attack/AMI: No Hx Congestive Heart Failure: No Hx Diabetes: No Hx Deep Vein Thrombosis: No Hx Pulmonary Embolism: No Hx GERD: No Hx Liver Disease: No Hx Renal Disease: No Hx Sickle Cell Disease: No Hx Arthritis: No Hx Headaches / Migraines: No Hx Seizures: No Hx Kidney Stones: No Hx Psychiatric Treatment: No Hx Asthma: Yes Hx COPD: No Hx Tuberculosis: No Hx Dementia: No Hx HIV: No Additional medical history: Chronic knee pain - Surgical History Past Surgical History?: Yes Hx Coronary Stent: No Hx Open Heart Surgery: No Hx Pacemaker: No Hx Internal Defibrillator: No Hx Cholecystectomy: No Hx Appendectomy: No Hx Breast Surgery: No Additional Surgical History: LEG - Social History Smoking Status: Never Smoker Substance Use Type: None - Medications Home Medications: Home Medications Medication Instructions Recorded Confirmed Last Taken Type ALBUTEROL Inhaler 2 puff INHALATION Q4HR PRN #1 05/19/19 Unknown Rx Montelukast [Singulair] 10 mg PO QPM #30 tablet 05/19/19 Unknown Rx Fluticasone/Salmeterol [Advair 1 puff IH BID #1 disk.w.dev 02/08/20 Unknown Rx Diskus 250-50 mcg] Prednisone [predniSONE 10 mg 10 mg PO .TAPER #1 tab.ds.pk 02/08/20 Unknown Rx (6-Day Pack, 21 Tabs)] ALBUTEROL NEB's [Proventil 0.083% 2.5 mg IH TID PRN #90 neb 03/08/20 Unknown Rx NEBS] Albuterol Mdi (or & Nicu Only) 2 puff IH QID PRN #8.5 gram 03/08/20 Unknown Rx [ProAir HFA Inhaler] Prednisone [predniSONE 5 mg (6-Day 5 mg PO .TAPER #1 tab.ds.pk 03/08/20 Unknown Rx Pack, 21 Tabs)] ED Physical Exam - General Limitations: No Limitations General appearance: alert, in no apparent distress - Head Head exam: Present: atraumatic, normocephalic - Eye Eye exam: Present: normal appearance. Absent: scleral icterus - ENT ENT exam: Present: normal orophraynx, mucous membranes moist - Neck Neck exam: Present: normal inspection, full ROM. Absent: lymphadenopathy - Respiratory Respiratory exam: Present: decreased breath sounds (Generalized). Absent: respiratory distress, rales, rhonchi, chest wall tenderness - Cardiovascular Cardiovascular Exam: Present: regular rate, normal rhythm. Absent: systolic murmur, diastolic murmur, rubs, gallop - GI/Abdominal GI/Abdominal exam: Present: soft. Absent: tenderness - Extremities Exam Extremities exam: Present: normal inspection, full ROM. Absent: calf tenderness (No swelling or tenderness noted to legs bilaterally) - Back Exam Back exam: Present: normal inspection - Neurological Exam Neurological exam: Present: alert, oriented X3, normal gait - Psychiatric Psychiatric exam: Present: normal affect, normal mood - Skin Skin exam: Present: warm, dry, intact, normal color. Absent: rash ED Course Vital Signs 03/08/20 13:20 Temperature 98.7 F Pulse Rate 86 Respiratory 16 Rate Blood Pressure 147/87 [Right] O2 Sat by Pulse 96 Oximetry ED Medical Decision Making - Medical Decision Making Patient here with complaints of asthma exacerbation for the past few days after running out of his inhaler. He also complains of sore throat and runny nose. Patient states he tested negative for COVID few days ago. No significant erythema/swelling of the throat or tonsils on exam. Breath sounds are decreased, however there are no rales or rhonchi noted. Patient was given a continuous DuoNeb and reports his wheezing and shortness of breath has fully resolved. Patient states he is feeling well and denies any other complaints/concerns. His vitals are normal and he is well-appearing. Patient is stable for discharge home and follow-up outpatient with primary care. Strict return precautions were discussed in great detail with patient who verbalizes understanding. Critical care attestation.: If time is entered above; I have spent that time in minutes in the direct care of this critically ill patient, excluding procedure time. ED Disposition Clinical Impression: Postnasal drip Asthma exacerbation Qualifiers: Asthma severity: mild Asthma persistence: intermittent Qualified Code(s): J45.21 - Mild intermittent asthma with (acute) exacerbation Disposition: DC-01 TO HOME OR SELFCARE Is pt being admited?: No Condition: Stable Instructions: Asthma (ED) Prescriptions: Prednisone [predniSONE 5 mg (6-Day Pack, 21 Tabs)] 5 mg PO .TAPER #1 tab.ds.pk Albuterol Mdi (or & Nicu Only) [ProAir HFA Inhaler] 2 puff IH QID PRN #8.5 gram PRN Reason: Shortness Of Breath ALBUTEROL NEB's [Proventil 0.083% NEBS] 2.5 mg IH TID PRN #90 neb PRN Reason: Wheezing Referrals: RASHAWN MOSELEY MD [Staff Physician] - 3-5 Days Forms: Work/School Release Form(ED)
== END 2020-03-08 15:42 | disposition home or self-care (01) ==
LOC: ED 13:03
DX: J45.901 Unspecified asthma with (acute) exacerbation (principal); R09.82 Postnasal drip; Z79.899 Other long term (current) drug therapy; Z91.013 Allergy to seafood
CPT/HCPCS: 94640; 99282; J7512

== ENCOUNTER 2020-05-29 07:10 | Emergency (ER) | payer SELFPAY ==
--- NOTE | 2020-05-29 12:03 | Emergency Department Report ---
ED Syncope HPI - General Chief Complaint: Dizziness Stated Complaint: FATIGUE Time Seen by Provider: 05/29/20 11:05 - History of Present Illness Initial Comments: Patient is a 49-year-old male who presents emergency room with complaints of a brief syncopal episode that occurred around 6 AM this morning. 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 He states that he only lost consciousness for a couple of seconds. He has had fatigue over the last couple of weeks. He states that he has been overworking. He states that during one pay period he worked 140 hours. He states that he is not getting very much sleep at night only 2 to 3 hours. Denies any chest pain, shortness of breath, dizziness prior to the syncope. he denies any symptoms at all currently. He denies any headache, vision changes, numbness, weakness, nausea, vomiting, diarrhea, cough, fever, shortness of breath, chest pain, leg swelling, abdominal pain. He has a past medical history of asthma. Denies any recent travel, recent cessation, hormone use, sick contacts. - Related Data Allergies/Adverse Reactions: Allergies shellfish derived Allergy (Verified 02/08/20 07:09) Anaphylaxis Home Medications: Ambulatory Orders ALBUTEROL Inhaler 2 puff INHALATION Q4HR PRN #1 05/19/19 Montelukast [Singulair] 10 mg PO QPM #30 tablet 05/19/19 Fluticasone/Salmeterol [Advair Diskus 250-50 mcg] 1 puff IH BID #1 disk.w.dev 02/08/20 Prednisone [predniSONE 10 mg (6-Day Pack, 21 Tabs)] 10 mg PO .TAPER #1 tab.ds.pk 02/08/20 ALBUTEROL NEB's [Proventil 0.083% NEBS] 2.5 mg IH TID PRN #90 neb 03/08/20 Albuterol Mdi (or & Nicu Only) [ProAir HFA Inhaler] 2 puff IH QID PRN #8.5 gram 03/08/20 Prednisone [predniSONE 5 mg (6-Day Pack, 21 Tabs)] 5 mg PO .TAPER #1 tab.ds.pk 03/08/20 ED Review of Systems ROS: Stated complaint: FATIGUE Other details as noted in HPI Comment: All other systems reviewed and negative ED Past Medical Hx - Past Medical History Previous Medical History?: Yes Hx Hypertension: No Hx CVA: No Hx Heart Attack/AMI: No Hx Congestive Heart Failure: No Hx Diabetes: No Hx Deep Vein Thrombosis: No Hx Pulmonary Embolism: No Hx GERD: No Hx Liver Disease: No Hx Renal Disease: No Hx Sickle Cell Disease: No Hx Arthritis: No Hx Headaches / Migraines: No Hx Seizures: No Hx Kidney Stones: No Hx Psychiatric Treatment: No Hx Asthma: Yes Hx COPD: No Hx Tuberculosis: No Hx Dementia: No Hx HIV: No Additional medical history: Chronic knee pain - Surgical History Past Surgical History?: Yes Hx Coronary Stent: No Hx Open Heart Surgery: No Hx Pacemaker: No Hx Internal Defibrillator: No Hx Cholecystectomy: No Hx Appendectomy: No Hx Breast Surgery: No Additional Surgical History: Right leg - Social History Smoking Status: Never Smoker Substance Use Type: None - Medications Home Medications: Home Medications Medication Instructions Recorded Confirmed Last Taken Type ALBUTEROL Inhaler 2 puff INHALATION Q4HR PRN #1 05/19/19 Unknown Rx Montelukast [Singulair] 10 mg PO QPM #30 tablet 05/19/19 Unknown Rx Fluticasone/Salmeterol [Advair 1 puff IH BID #1 disk.w.dev 02/08/20 Unknown Rx Diskus 250-50 mcg] Prednisone [predniSONE 10 mg 10 mg PO .TAPER #1 tab.ds.pk 02/08/20 Unknown Rx (6-Day Pack, 21 Tabs)] ALBUTEROL NEB's [Proventil 0.083% 2.5 mg IH TID PRN #90 neb 03/08/20 Unknown Rx NEBS] Albuterol Mdi (or & Nicu Only) 2 puff IH QID PRN #8.5 gram 03/08/20 Unknown Rx [ProAir HFA Inhaler] Prednisone [predniSONE 5 mg (6-Day 5 mg PO .TAPER #1 tab.ds.pk 03/08/20 Unknown Rx Pack, 21 Tabs)] ED Physical Exam - General Limitations: No Limitations General appearance: alert, in no apparent distress - Head Head exam: Present: atraumatic, normocephalic - Eye Eye exam: Present: normal appearance, PERRL, EOMI. Absent: periorbital swelling, periorbital tenderness Pupils: Present: normal accommodation - ENT ENT exam: Present: mucous membranes moist - Neck Neck exam: Present: normal inspection, full ROM. Absent: tenderness, meningismus - Respiratory Respiratory exam: Present: normal lung sounds bilaterally. Absent: respiratory distress, wheezes, rales, rhonchi, stridor, chest wall tenderness, accessory muscle use, decreased breath sounds, prolonged expiratory - Cardiovascular Cardiovascular Exam: Present: regular rate, normal rhythm, normal heart sounds. Absent: systolic murmur, diastolic murmur, rubs, gallop - Back Exam Back exam: Present: normal inspection, full ROM. Absent: paraspinal tenderness, vertebral tenderness - Neurological Exam Neurological exam: Present: alert, oriented X3, CN II-XII intact, normal gait. Absent: motor sensory deficit - Psychiatric Psychiatric exam: Present: normal affect, normal mood - Skin Skin exam: Present: warm, dry, intact ED Course Vital Signs 05/29/20 05/29/20 07:42 14:08 Temperature 97.4 F L 98.0 F Pulse Rate 78 78 Respiratory 16 18 Rate Blood Pressure 168/86 160/82 [Right] O2 Sat by Pulse 94 96 Oximetry ED Medical Decision Making - Lab Data Result diagrams: 05/29/20 12:31 05/29/20 12:31 Lab Results 05/29/20 05/29/20 Range/Units 12:31 12:31 WBC 6.3 (4.5-11.0) K/mm3 RBC 5.04 H (3.65-5.03) M/mm3 Hgb 14.2 (11.8-15.2) gm/dl Hct 43.2 (35.5-45.6) % MCV 86 (84-94) fl MCH 28 (28-32) pg MCHC 33 (32-34) % RDW 13.7 (13.2-15.2) % Plt Count 179 (140-440) K/mm3 Lymph % (Auto) 32.1 (13.4-35.0) % Cochran % (Auto) 5.9 (0.0-7.3) % Eos % (Auto) 2.8 (0.0-4.3) % Baso % (Auto) 0.5 (0.0-1.8) % Lymph # (Auto) 2.0 (1.2-5.4) K/mm3 Cochran # (Auto) 0.4 (0.0-0.8) K/mm3 Eos # (Auto) 0.2 (0.0-0.4) K/mm3 Baso # (Auto) 0.0 (0.0-0.1) K/mm3 Seg Neutrophils % 58.7 (40.0-70.0) % Seg Neutrophils # 3.7 (1.8-7.7) K/mm3 Sodium 138 (137-145) mmol/L Potassium 4.4 (3.6-5.0) mmol/L Chloride 104.5 (98-107) mmol/L Carbon Dioxide 28 (22-30) mmol/L Anion Gap 10 mmol/L BUN 14 (9-20) mg/dL Creatinine 0.7 L (0.8-1.3) mg/dL Estimated GFR > 60 ml/min BUN/Creatinine Ratio 20 % Glucose 96 (75-100) mg/dL Calcium 9.9 (8.4-10.2) mg/dL Magnesium 2.10 (1.7-2.3) mg/dL Total Bilirubin 0.50 (0.1-1.2) mg/dL AST 19 (5-40) units/L ALT 25 (7-56) units/L Alkaline Phosphatase 65 (35-129) units/L Total Creatine Kinase 527 H (55-170) units/L Troponin T < 0.010 (0.00-0.029) ng/mL Total Protein 7.8 (6.3-8.2) g/dL Albumin 4.6 (3.9-5) g/dL Albumin/Globulin Ratio 1.4 % Vital Signs 05/29/20 05/29/20 07:42 14:08 Temperature 97.4 F L 98.0 F Pulse Rate 78 78 Respiratory 16 18 Rate Blood Pressure 168/86 160/82 [Right] O2 Sat by Pulse 94 96 Oximetry - EKG Data EKG shows normal: sinus rhythm, intervals Rate: normal - EKG Data 05/29/20 12:03 abnormal axis no STEMI - Radiology Data Radiology results: report reviewed, image reviewed Head CT w/o contrast: no acute process - Medical Decision Making Patient is a 49-year-old male who presents emergency room with complaints of a brief syncopal episode that occurred around 6 AM this morning. 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 He states that he only lost consciousness for a couple of seconds. He has had fatigue over the last couple of weeks. He states that he has been overworking. He states that during one pay period he worked 140 hours. He states that he is not getting very much sleep at night only 2 to 3 hours. Denies any chest pain, shortness of breath, dizziness prior to the syncope. he denies any symptoms at all currently. He denies any headache, vision changes, numbness, weakness, nausea, vomiting, diarrhea, cough, fever, shortness of breath, chest pain, leg swelling, abdominal pain. He has a past medical history of asthma. Denies any recent travel, recent cessation, hormone use, sick contacts. Patient has no neurological deficits on exam, no midline spinal C-spine, T-spine, L-spine tenderness palpation, no step-offs, no deformities. Labs are stable, mild elevation in CK, encouraged increasing oral intake. EKG abnormal axis, no STEMI. Head CT w/o contrast: no acute process. Discussed all findings with patient. Patient was observed in the emergency department for multiple hours and had no further episodes and remained asymptomatic. Patient referred to primary care doctor and structural engineering technician. Advised patient Please increase your water intake over the next several days. Please practice a good sleep regimen and get 7 to 8 hours of sleep at night. Follow-up with a primary care doctor. Follow-up with a structural engineering technician. Return to emergency room for any new or worsening symptoms. In the [facility] you may not operate a motor vehicle for 6 months after having a loss of consciousness episode, you will need to be cleared for driving by your primary care doctor. - Differential Diagnosis Anemia, SHAYY, dehydration, vasovagal, arrhythmia, mass, CVA, sleep deprivati Critical care attestation.: If time is entered above; I have spent that time in minutes in the direct care of this critically ill patient, excluding procedure time. ED Disposition Clinical Impression: Lightheadedness Syncope Qualifiers: Syncope type: unspecified Qualified Code(s): R55 - Syncope and collapse Disposition: DC-01 TO HOME OR SELFCARE Is pt being admited?: No Does the pt Need Aspirin: No Condition: Stable Instructions: Syncope, Syncope (ED) Additional Instructions: Please increase your water intake over the next several days. Please practice a good sleep regimen and get 7 to 8 hours of sleep at night. Follow-up with a primary care doctor. Follow-up with a structural engineering technician. Return to emergency room for any new or worsening symptoms. In the [facility] you may not operate a motor vehicle for 6 months after having a loss of consciousness episode, you will need to be cleared for driving by your primary care doctor. Referrals: PRIMARY MD GENIA [Primary Care Provider] - 2-3 Days RASHAWN MOSELEY MD [Staff Physician] - 2-3 Days [facility] [Provider Group] - 2-3 Days BALJINDER MARCH MD [Staff Physician] - 2-3 Days Forms: Work/School Release Form(ED) Time of Disposition: 13:59 Print Language: CHADIAN
--- NOTE | 2020-05-29 12:55 | Cat Scan Report ---
CT head/brain wo con INDICATION / CLINICAL INFORMATION: 49 years Male; syncopal episode, hit head. TECHNIQUE: Routine CT head without contrast. All CT scans at this location are performed using CT dos e reduction for ALARA by means of automated exposure control. COMPARISON: None. FINDINGS: BRAIN / INTRACRANIAL CONTENTS: The beam hardening degrades the image quality. However, the brain appe ars to demonstrate appropriate attenuation. The ventricular system is within normal limits in size an d configuration. There is no clear CT evidence of acute intracranial hemorrhage or significant mass e ffect. ORBITS: No significant abnormality of visualized orbits. SINUSES / MASTOIDS: There is mild mucosal thickening involving the visualized right maxillary sinus. Additionally, there is a small retention cyst along the lateral left axillary sinus. CRANIOCERVICAL JUNCTION: No significant abnormality. ADDITIONAL FINDINGS: None. IMPRESSION: 1. There is no CT evidence of acute intracranial process. Signer Name: Alverto Ramsey MD Signed: 05/29/2020 12:50 PM Workstation Name: [id number]
[2020-05-29 13:09] LABS: Basophils % (Auto) 0.5 % (0.0-1.8); Eosinophils % (Auto) 2.8 % (0.0-4.3); Hematocrit 43.2 % (35.5-45.6); Hemoglobin 14.2 gm/dl (11.8-15.2); Lymphocytes % (Auto) 32.1 % (13.4-35.0); Mean Corpuscular HGB Conc 33 % (32-34); Mean Corpuscular Volume 86 fl (84-94); Monocytes % (Auto) 5.9 % (0.0-7.3); Platelet Count 179 K/mm3 (140-440); Red Blood Count 5.04 M/mm3 (3.65-5.03); Red Cell Distribution Width 13.7 % (13.2-15.2)
[2020-05-29 13:10] LABS: Eosinophils # (Auto) 0.2 K/mm3 (0.0-0.4); Monocytes # (Auto) 0.4 K/mm3 (0.0-0.8)
[2020-05-29 13:34] LABS: Alanine Aminotransferase 25 units/L (7-56); Albumin 4.6 g/dL (3.9-5); Blood Urea Nitrogen 14 mg/dL (9-20); Calcium 9.9 mg/dL (8.4-10.2); Hemolysis Index 20
[2020-05-29 13:52] LABS: BUN/Creatinine Ratio 20
[2020-05-29 14:26] VITALS: BP 160/82
== END 2020-05-29 14:08 | disposition home or self-care (01) ==
LOC: ED 07:10
DX: R55 Syncope and collapse (principal); R42 Dizziness and giddiness; J45.909 Unspecified asthma, uncomplicated; Z98.890 Other specified postprocedural states; Z79.899 Other long term (current) drug therapy; Z91.013 Allergy to seafood
CPT/HCPCS: 36415; 70450; 80053; 82550; 83735; 84484; 85025; 93005

== ENCOUNTER 2021-06-01 14:23 | Emergency (ER) | payer SELFPAY ==
[2021-06-01] MEDS ORDERED: ALBUTEROL 2.5 MG/3 ML NEBU IH ONE (15:21)
[2021-06-01] MEDS ORDERED: DEXAMETHASONE 4 MG TAB PO ONE (15:21)
[2021-06-01] MEDS ORDERED: IPRATROPIUM 0.02% NEBU 2.5 ML IH ONE (15:21)
--- NOTE | 2021-06-01 15:22 | Emergency Department Report ---
ED Asthma HPI - General Stated Complaint: ASTHMA Time Seen by Provider: 06/01/21 15:20 - History of Present Illness Initial Comments: Patient presents with ongoing dyspnea. He has a history of asthma. For the last month, he has had a productive cough coughing up phlegm. He has had no real fevers or chills have been persistent. He has had trouble breathing. He has had coronavirus testing done which was negative. He was vaccinated against Covid and got a pneumonia shot. Today, he came in because he was having more trouble breathing. He used his inhaler at least 10 times today. He is run out of his inhaler. He does not know what to do. He has never been intubated before. There is no history of pain or swelling in the legs. Has no recent travel or trauma. He has never had a PE before. - Related Data Previous Rx's Medication Instructions Recorded Last Taken Type Montelukast [Singulair] 10 mg PO QPM #30 tablet 05/19/19 Unknown Rx Albuterol Mdi (or & Nicu Only) 2 puff IH QID PRN #8.5 gram 06/01/21 Unknown Rx [ProAir HFA Inhaler] Fluticasone/Salmeterol [Advair 1 puff IH BID #1 disk.w.dev 06/01/21 Unknown Rx Diskus 250-50 mcg] Prednisone [predniSONE 10 mg 10 mg PO .TAPER #1 tab.ds.pk 06/01/21 Unknown Rx (6-Day Pack, 21 Tabs)] Allergies Allergy/AdvReac Type Severity Reaction Status Date / Time shellfish derived Allergy Anaphylaxis Verified 02/08/20 07:09 ED Review of Systems ROS: Stated complaint: ASTHMA Other details as noted in HPI Comment: All other systems reviewed and negative Constitutional: denies: fever Eyes: denies: vision change ENT: denies: throat pain Respiratory: see HPI Cardiovascular: denies: chest pain Endocrine: denies: unexplained weight loss Gastrointestinal: denies: abdominal pain Genitourinary: denies: dysuria Musculoskeletal: denies: back pain Skin: denies: rash Neurological: denies: headache Hematological/Lymphatic: denies: easy bruising ED Past Medical Hx - Past Medical History Hx Hypertension: No Hx CVA: No Hx Heart Attack/AMI: No Hx Congestive Heart Failure: No Hx Diabetes: No Hx Deep Vein Thrombosis: No Hx Pulmonary Embolism: No Hx GERD: No Hx Liver Disease: No Hx Renal Disease: No Hx Sickle Cell Disease: No Hx Arthritis: No Hx Headaches / Migraines: No Hx Seizures: No Hx Kidney Stones: No Hx Psychiatric Treatment: No Hx Asthma: Yes Hx COPD: No Hx Tuberculosis: No Hx Dementia: No Hx HIV: No Additional medical history: Chronic knee pain - Surgical History Hx Coronary Stent: No Hx Open Heart Surgery: No Hx Pacemaker: No Hx Internal Defibrillator: No Hx Cholecystectomy: No Hx Appendectomy: No Hx Breast Surgery: No Additional Surgical History: Right leg - Family History Family history: other ( Asthma) - Social History Smoking Status: Never Smoker Substance Use Type: None - Medications Home Medications: Home Medications Medication Instructions Recorded Confirmed Last Taken Type Montelukast [Singulair] 10 mg PO QPM #30 tablet 05/19/19 Unknown Rx Albuterol Mdi (or & Nicu Only) 2 puff IH QID PRN #8.5 gram 06/01/21 Unknown Rx [ProAir HFA Inhaler] Fluticasone/Salmeterol [Advair 1 puff IH BID #1 disk.w.dev 06/01/21 Unknown Rx Diskus 250-50 mcg] Prednisone [predniSONE 10 mg 10 mg PO .TAPER #1 tab.ds.pk 06/01/21 Unknown Rx (6-Day Pack, 21 Tabs)] ED Physical Exam - General Limitations: No Limitations, Other ( pulse ox noted and normal) General appearance: alert, in distress ( mild) - Head Head exam: Present: atraumatic, normocephalic, normal inspection - Eye Eye exam: Present: normal appearance, EOMI. Absent: scleral icterus - ENT ENT exam: Present: normal exam, normal orophraynx - Neck Neck exam: Present: normal inspection. Absent: meningismus - Respiratory Respiratory exam: Present: respiratory distress ( mild), wheezes ( bilateral), prolonged expiratory, other (4 word dyspnea) - GI/Abdominal GI/Abdominal exam: Present: soft - Extremities Exam Extremities exam: Present: normal capillary refill. Absent: pedal edema - Back Exam Back exam: Absent: CVA tenderness (R), CVA tenderness (L) - Neurological Exam Neurological exam: Present: alert, oriented X3, CN II-XII intact, normal gait. Absent: motor sensory deficit - Psychiatric Psychiatric exam: Present: normal affect, normal mood - Skin Skin exam: Present: warm, dry ED Course Vital Signs 06/01/21 06/01/21 15:19 15:40 Temperature 98.7 F Pulse Rate 84 Pulse Rate [ 88 Bilateral Throughout] Respiratory 22 Rate Respiratory 20 Rate [Bilateral Throughout] Blood Pressure 126/89 [Right] O2 Sat by Pulse 95 Oximetry - Reevaluation(s) Reevaluation #1: 06/01/21 15:22 Continuous neb and cxr ordered. Old records noted. Reevaluation #2: 06/01/21 17:18 After treatment, patient felt better. He was no longer wheezing. X-ray was reviewed. Patient was discharged. ED Medical Decision Making - Radiology Data Radiology results: report reviewed - Medical Decision Making Patient presented with an asthma exacerbation. There was no evidence of pneumonia radiographically or clinically. He did not have a pneumothorax. Patient did not have unilateral leg edema or pleuritic chest pain that would suggest pulmonary embolism. Patient was treated symptomatically and his medications were refilled. Critical Care Time: No Critical care attestation.: If time is entered above; I have spent that time in minutes in the direct care of this critically ill patient, excluding procedure time. ED Disposition Clinical Impression: Asthma exacerbation Qualifiers: Asthma severity: moderate Asthma persistence: persistent Qualified Code(s): J45.41 - Moderate persistent asthma with (acute) exacerbation Disposition: 01 HOME / SELF CARE / HOMELESS Is pt being admited?: No Condition: Stable Instructions: Asthma, Adult, Cough, Adult, [id number] Additional Instructions: Drink plenty water. Continue home medication. Return for problems. Follow-up with your regular doctor for recheck and further management. If you do not have a regular doctor, follow-up with the referral physician. Prescriptions: Fluticasone/Salmeterol [Advair Diskus 250-50 mcg] 1 puff IH BID #1 disk.w.dev Prednisone [predniSONE 10 mg (6-Day Pack, 21 Tabs)] 10 mg PO .TAPER #1 tab.ds.pk Albuterol Mdi (or & Nicu Only) [ProAir HFA Inhaler] 2 puff IH QID PRN #8.5 gram PRN Reason: Shortness Of Breath Referrals: PRIMARY CARE, [Referring] - 3-5 Days CYNTHIA TORREZ MD [Staff Physician] - 3-5 Days
--- NOTE | 2021-06-01 17:12 | XRay Report ---
CHEST 2 VIEWS INDICATION / CLINICAL INFORMATION: productive cough. COMPARISON: 11/13/2019 FINDINGS: SUPPORT DEVICES: None. HEART / MEDIASTINUM: No significant abnormality. LUNGS / PLEURA: No significant pulmonary or pleural abnormality. No pneumothorax. ADDITIONAL FINDINGS: No significant additional findings. IMPRESSION: 1. No acute findings. Signer Name: He Reyes MD Signed: 06/01/2021 5:08 PM Workstation Name: [id number]
[2021-06-01 17:29] VITALS: BP 137/90
== END 2021-06-01 17:30 | disposition home or self-care (01) ==
LOC: ED 14:23
DX: J45.901 Unspecified asthma with (acute) exacerbation (principal)
CPT/HCPCS: 71046; 94644; 99283

== ENCOUNTER 2021-07-26 12:22 | Emergency (ER) | payer SELFPAY | END 2021-07-26 15:14 | LOC: ED 12:22 | DX: J45.909 Unspecified asthma, uncomplicated (principal); Z53.21 Procedure and treatment not carried out due to patient leaving prior to being seen by health care provider ==

== ENCOUNTER 2021-08-16 07:14 | Emergency (ER) | payer BC ==
[2021-08-16 07:19] VITALS: BP 132/91
[2021-08-16] MEDS ORDERED: ALBUTEROL 2.5 MG/3 ML NEBU IH ONE (07:38)
[2021-08-16] MEDS ORDERED: IPRATROPIUM 0.02% NEBU 2.5 ML IH ONE (07:39)
[2021-08-16] MEDS ORDERED: methylPREDNISolone Sod Succinate 125 MG/2 ML INJ IM ONE (07:40)
--- NOTE | 2021-08-16 07:47 | Emergency Department Report ---
ED Asthma HPI - General Chief Complaint: Adult Asthma Stated Complaint: ASTHMA Source: patient Mode of arrival: Ambulatory Limitations: No Limitations - History of Present Illness Initial Comments: 50 male present to Ed with history of asthma complain of shortness of breath . Patient states that he is currently out of his albuterol inhaler. He states his current Covid vaccinated with Pfizer with booster. Stated test COVID nested negative on yesterday. Patient denies any cough ,fever, body ache, or fatigue. Patient denies any prior medication. Patient denies any previous history of intubation .No acute distress noted. No ill appearance noted. MD Complaint: shortness of breath, wheezing -: This morning Severity: mild Context: none known Associated Symptoms: none - Related Data Current Asthma Therapy: inhaled bronchodilator, inhaled steroid Previous Rx's Medication Instructions Recorded Last Taken Type Montelukast [Singulair] 10 mg PO QPM #30 tablet 05/19/19 Unknown Rx Albuterol Mdi (or & Nicu Only) 2 puff IH QID PRN #8.5 gram 06/01/21 Unknown Rx [ProAir HFA Inhaler] Fluticasone/Salmeterol [Advair 1 puff IH BID #1 disk.w.dev 06/01/21 Unknown Rx Diskus 250-50 mcg] Prednisone [predniSONE 10 mg 10 mg PO .TAPER #1 tab.ds.pk 06/01/21 Unknown Rx (6-Day Pack, 21 Tabs)] Albuterol Mdi (or & Nicu Only) 2 puff IH QID PRN 30 Days #8.5 gram 08/16/21 U nknown Rx [ProAir HFA Inhaler] predniSONE [Deltasone] 20 mg PO BID 5 Days #10 tab 08/16/21 Unknown Rx Allergies Allergy/AdvReac Type Severity Reaction Status Date / Time shellfish derived Allergy Anaphylaxis Verified 02/08/20 07:09 ED Review of Systems ROS: Stated complaint: ASTHMA Other details as noted in HPI Constitutional: denies: chills, fever Eyes: denies: eye pain, eye discharge, vision change ENT: denies: ear pain, throat pain Respiratory: shortness of breath, wheezing. denies: cough Cardiovascular: denies: chest pain, palpitations Endocrine: no symptoms reported Gastrointestinal: denies: abdominal pain, nausea, diarrhea Genitourinary: denies: urgency, dysuria Musculoskeletal: denies: back pain, joint swelling, arthralgia Skin: denies: rash, lesions Neurological: denies: headache, weakness, paresthesias Psychiatric: denies: anxiety, depression Hematological/Lymphatic: denies: easy bleeding, easy bruising ED Past Medical Hx - Past Medical History Previous Medical History?: Yes Hx Hypertension: No Hx CVA: No Hx Heart Attack/AMI: No Hx Congestive Heart Failure: No Hx Diabetes: No Hx Deep Vein Thrombosis: No Hx Pulmonary Embolism: No Hx GERD: No Hx Liver Disease: No Hx Renal Disease: No Hx Sickle Cell Disease: No Hx Arthritis: No Hx Headaches / Migraines: No Hx Seizures: No Hx Kidney Stones: No Hx Psychiatric Treatment: No Hx Asthma: Yes Hx COPD: No Hx Tuberculosis: No Hx Dementia: No Hx HIV: No Additional medical history: Chronic knee pain - Surgical History Past Surgical History?: Yes Hx Coronary Stent: No Hx Open Heart Surgery: No Hx Pacemaker: No Hx Internal Defibrillator: No Hx Cholecystectomy: No Hx Appendectomy: No Hx Breast Surgery: No Additional Surgical History: Right leg - Social History Smoking Status: Never Smoker Substance Use Type: None - Medications Home Medications: Home Medications Medication Instructions Recorded Confirmed Last Taken Type Montelukast [Singulair] 10 mg PO QPM #30 tablet 05/19/19 Unknown Rx Albuterol Mdi (or & Nicu Only) 2 puff IH QID PRN #8.5 gram 06/01/21 Unknown Rx [ProAir HFA Inhaler] Fluticasone/Salmeterol [Advair 1 puff IH BID #1 disk.w.dev 06/01/21 Unknown Rx Diskus 250-50 mcg] Prednisone [predniSONE 10 mg 10 mg PO .TAPER #1 tab.ds.pk 06/01/21 Unknown Rx (6-Day Pack, 21 Tabs)] Albuterol Mdi (or & Nicu Only) 2 puff IH QID PRN 30 Days #8.5 gram 08/16/21 Unknown Rx [ProAir HFA Inhaler] predniSONE [Deltasone] 20 mg PO BID 5 Days #10 tab 08/16/21 Unknown Rx ED Physical Exam - General Limitations: No Limitations General appearance: alert, in no apparent distress - Head Head exam: Present: atraumatic, normocephalic - Eye Eye exam: Present: normal appearance - ENT ENT exam: Present: mucous membranes moist - Neck Neck exam: Present: normal inspection - Respiratory Respiratory exam: Present: normal lung sounds bilaterally, wheezes. Absent: respiratory distress - Cardiovascular Cardiovascular Exam: Present: regular rate, normal rhythm. Absent: systolic murmur, diastolic murmur, rubs, gallop - GI/Abdominal GI/Abdominal exam: Present: soft, normal bowel sounds - Rectal Rectal exam: Present: deferred - Extremities Exam Extremities exam: Present: normal inspection - Back Exam Back exam: Present: normal inspection - Neurological Exam Neurological exam: Present: alert, oriented X3 - Psychiatric Psychiatric exam: Present: normal affect, normal mood - Skin Skin exam: Present: warm, dry, intact, normal color. Absent: rash ED Course Vital Signs 08/16/21 07:18 Temperature 98.3 F Pulse Rate 84 Respiratory 20 Rate Blood Pressure 132/91 O2 Sat by Pulse 95 Oximetry ED Medical Decision Making - Medical Decision Making 50 male present to Ed with history of asthma complain of shortness of breath . Patient states that he is currently out of his albuterol inhaler. He states his current Covid vaccinated with [employer] with booster. Stated test COVID nested negative on yesterday. Patient denies any cough ,fever, body ache, or fatigue. Patient denies any prior medication. Patient denies any previous history of intubation .No acute distress noted. No ill appearance noted. Albuterol / Atrovent treatment given. soul medrol Given No further wheezing wheezing noted patient O2 sat currently 98-99%. Patient denies any further complaint of shortness of breath. Discussed discussed discharge planning with patient. Patient verbalized understanding. No acute distress noted at time of discharge. Critical care attestation.: If time is entered above; I have spent that time in minutes in the direct care of this critically ill patient, excluding procedure time. 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
== END 2021-08-16 08:47 | disposition home or self-care (01) ==
LOC: ED 07:14
DX: J45.901 Unspecified asthma with (acute) exacerbation (principal); Z79.899 Other long term (current) drug therapy; Z98.890 Other specified postprocedural states; Z91.013 Allergy to seafood
CPT/HCPCS: 94640; 96372; 99282; J2930

== ENCOUNTER 2021-09-13 11:28 | Emergency (ER) | payer BC ==
[2021-09-13 11:45] VITALS: BP 127/88
--- NOTE | 2021-09-13 12:00 | Emergency Department Report ---
ED Medical Clearance HPI - General Chief complaint: Medical Clearance Stated complaint: ASTHMA Source: patient Mode of arrival: Ambulatory - History of Present Illness Initial comments: 51-year-old -Italian male presents to the emergency room stating he ran out of his albuterol inhaler. Patient comes here often for the same complaint. Patient states he does not have a primary care provider. Patient has been referred to multiple primary care providers in the past. Denies any shortness of breath chest pain no respiratory distress. -: This morning Home medications: Previous Rx's Medication Instructions Recorded Last Taken Type Montelukast [Singulair] 10 mg PO QPM #30 tablet 05/19/19 Unknown Rx Albuterol Mdi (or & Nicu Only) 2 puff IH QID PRN #8.5 gram 06/01/21 Unknown Rx [ProAir HFA Inhaler] Fluticasone/Salmeterol [Advair 1 puff IH BID #1 disk.w.dev 06/01/21 Unknown Rx Diskus 250-50 mcg] Prednisone [predniSONE 10 mg 10 mg PO .TAPER #1 tab.ds.pk 06/01/21 Unknown Rx (6-Day Pack, 21 Tabs)] predniSONE [Deltasone] 20 mg PO BID 5 Days #10 tab 08/16/21 Unknown Rx Albuterol Mdi (or & Nicu Only) 2 puff IH QID PRN 30 Days #8.5 gram 09/13/21 Unknown Rx [ProAir HFA Inhaler] Allergies/Adverse reactions: Allergies Allergy/AdvReac Type Severity Reaction Status Date / Time shellfish derived Allergy Anaphylaxis Verified 02/08/20 07:09 ED Review of Systems ROS: Stated complaint: ASTHMA Other details as noted in HPI Comment: All other systems reviewed and negative ED Past Medical Hx - Past Medical History Hx Hypertension: No Hx CVA: No Hx Heart Attack/AMI: No Hx Congestive Heart Failure: No Hx Diabetes: No Hx Deep Vein Thrombosis: No Hx Pulmonary Embolism: No Hx GERD: No Hx Liver Disease: No Hx Renal Disease: No Hx Sickle Cell Disease: No Hx Arthritis: No Hx Headaches / Migraines: No Hx Seizures: No Hx Kidney Stones: No Hx Psychiatric Treatment: No Hx Asthma: Yes Hx COPD: No Hx Tuberculosis: No Hx Dementia: No Hx HIV: No Additional medical history: Chronic knee pain - Surgical History Hx Coronary Stent: No Hx Open Heart Surgery: No Hx Pacemaker: No Hx Internal Defibrillator: No Hx Cholecystectomy: No Hx Appendectomy: No Hx Breast Surgery: No Additional Surgical History: Right leg - Social History Smoking Status: Never Smoker Substance Use Type: None - Medications Home Medications: Home Medications Medication Instructions Recorded Confirmed Last Taken Type Montelukast [Singulair] 10 mg PO QPM #30 tablet 05/19/19 Unknown Rx Albuterol Mdi (or & Nicu Only) 2 puff IH QID PRN #8.5 gram 06/01/21 Unknown Rx [ProAir HFA Inhaler] Fluticasone/Salmeterol [Advair 1 puff IH BID #1 disk.w.dev 06/01/21 Unknown Rx Diskus 250-50 mcg] Prednisone [predniSONE 10 mg 10 mg PO .TAPER #1 tab.ds.pk 06/01/21 Unknown Rx (6-Day Pack, 21 Tabs)] predniSONE [Deltasone] 20 mg PO BID 5 Days #10 tab 08/16/21 Unknown Rx Albuterol Mdi (or & Nicu Only) 2 puff IH QID PRN 30 Days #8.5 gram 09/13/21 Unknown Rx [ProAir HFA Inhaler] ED Physical Exam - General Limitations: No Limitations General appearance: alert, in no apparent distress - Head Head exam: Present: atraumatic, normocephalic - Eye Eye exam: Present: normal appearance - ENT ENT exam: Present: mucous membranes moist - Neck Neck exam: Present: normal inspection - Respiratory Respiratory exam: Present: normal lung sounds bilaterally. Absent: respiratory distress - Cardiovascular Cardiovascular Exam: Present: regular rate, normal rhythm. Absent: systolic murmur, diastolic murmur, rubs, gallop - GI/Abdominal GI/Abdominal exam: Present: soft, normal bowel sounds - Rectal Rectal exam: Present: deferred - Extremities Exam Extremities exam: Present: normal inspection - Back Exam Back exam: Present: normal inspection - Neurological Exam Neurological exam: Present: alert, oriented X3 - Psychiatric Psychiatric exam: Present: normal affect, normal mood - Skin Skin exam: Present: warm, dry, intact, normal color. Absent: rash ED Course Vital Signs 09/13/21 11:43 Temperature 98.3 F Pulse Rate 72 Respiratory 18 Rate Blood Pressure 127/88 [Right] O2 Sat by Pulse 95 Oximetry ED Medical Decision Making - Medical Decision Making 51-year-old -Italian male presents to the emergency room stating he ran out of his albuterol inhaler. Patient comes here often for the same complaint. Patient states he does not have a primary care provider. Patient has been referred to multiple primary care providers in the past. Denies any shortness of breath chest pain no respiratory distress. Albuterol inhaler refill ED Disposition Clinical Impression: Medication refill Disposition: HOME / SELF CARE / HOMELESS Is pt being admited?: No Does the pt Need Aspirin: No Condition: Stable Instructions: Medicine Refill at the Emergency Department Additional Instructions: It is important you follow-up with a primary care provider or project officer for your chronic medication refills. Prescriptions: Albuterol Mdi (or & Nicu Only) [ProAir HFA Inhaler] 2 puff IH QID PRN 30 Days #8.5 gram PRN Reason: Shortness Of Breath Referrals: RASHAWN MOSELEY MD [Staff Physician] - 3-5 Days KYE GUTIERREZ MD [Staff Physician] - 3-5 Days Time of Disposition: 12:00
== END 2021-09-13 12:53 | disposition home or self-care (01) ==
LOC: ED 11:28
DX: J45.909 Unspecified asthma, uncomplicated (principal); Z76.0 Encounter for issue of repeat prescription; Z91.013 Allergy to seafood
CPT/HCPCS: 99282

== ENCOUNTER 2021-10-05 12:55 | Emergency (ER) | payer BC ==
[2021-10-05 13:15] VITALS: BP 140/88
--- NOTE | 2021-10-05 14:46 | Emergency Department Report ---
ED General Adult HPI - General Chief complaint: Dental/Oral Stated complaint: HEAD/MOUTH/NECK PAIN Source: patient Mode of arrival: Ambulatory Limitations: No Limitations - History of Present Illness Initial comments: Patient is a 51-year-old -Swiss male with a history of asthma presents to the ED with complaint of acute onset persistent painful swollen right mandibular gingiva with premolar molar toothache for the last 3 days, worse in the last 2 days. Patient states that he has not been able to eat anything in the last 24 hours because of worsening pain. Patient states that when he woke up about 12 hours ago the right mandibular swollen gingiva was worse. Patient denies fever, chills, traumatic injury, headache, dizziness, syncope, sore throat, nausea and vomiting, neck pain, change in vision, chest pain or shortness of breath or abdominal pain. MD Complaint: Right mandibular premolar and molar toothache; swollen painful gingiva -: Sudden, days(s) (3) Location: mouth Radiation: non-radiation Severity scale (0 -10): 8 Quality: aching, sharp Consistency: constant Improves with: none Worsens with: eating Associated Symptoms: denies other symptoms. denies: confusion, chest pain, diaphoresis, fever/chills - Related Data Previous Rx's Medication Instructions Recorded Last Taken Type Montelukast [Singulair] 10 mg PO QPM #30 tablet 05/19/19 Unknown Rx Albuterol Mdi (or & Nicu Only) 2 puff IH QID PRN #8.5 gram 06/01/21 Unknown Rx [ProAir HFA Inhaler] Fluticasone/Salmeterol [Advair 1 puff IH BID #1 disk.w.dev 06/01/21 Unknown Rx Diskus 250-50 mcg] Prednisone [predniSONE 10 mg 10 mg PO .TAPER #1 tab.ds.pk 06/01/21 Unknown Rx (6-Day Pack, 21 Tabs)] predniSONE [Deltasone] 20 mg PO BID 5 Days #10 tab 08/16/21 Unknown Rx Albuterol Mdi (or & Nicu Only) 2 puff IH QID PRN 30 Days #8.5 gram 09/13/21 Unknown Rx [ProAir HFA Inhaler] Clindamycin [Clindamycin CAP] 300 mg PO Q8H #30 cap 10/05/21 Unknown Rx Ketorolac [Toradol] 10 mg PO Q8H PRN #20 tab 10/05/21 Unknown Rx traMADoL [Ultram] 50 mg PO Q6HR PRN #12 tablet 10/05/21 Unknown Rx Allergies Allergy/AdvReac Type Severity Reaction Status Date / Time shellfish derived Allergy Anaphylaxis Verified 02/08/20 07:09 ED Review of Systems ROS: Stated complaint: HEAD/MOUTH/NECK PAIN Other details as noted in HPI Constitutional: denies: chills, fever Eyes: denies: eye pain, eye discharge, vision change ENT: throat pain (Swollen, painful right mandibular gingiva), dental pain (Painful right mandibular premolar and molar teeth). denies: ear pain, congestion Respiratory: denies: cough, shortness of breath, wheezing Cardiovascular: denies: chest pain, palpitations Endocrine: no symptoms reported Gastrointestinal: denies: abdominal pain, nausea, vomiting, diarrhea Genitourinary: denies: urgency, dysuria, frequency, hematuria, discharge, testicular pain, testicular mass Musculoskeletal: denies: back pain, joint swelling, arthralgia Skin: denies: rash, lesions Neurological: denies: headache, weakness, paresthesias Psychiatric: denies: anxiety, depression Hematological/Lymphatic: denies: easy bleeding, easy bruising ED Past Medical Hx - Past Medical History Hx Hypertension: No Hx CVA: No Hx Heart Attack/AMI: No Hx Congestive Heart Failure: No Hx Diabetes: No Hx Deep Vein Thrombosis: No Hx Pulmonary Embolism: No Hx GERD: No Hx Liver Disease: No Hx Renal Disease: No Hx Sickle Cell Disease: No Hx Arthritis: No Hx Headaches / Migraines: No Hx Seizures: No Hx Kidney Stones: No Hx Psychiatric Treatment: No Hx Asthma: Yes Hx COPD: No Hx Tuberculosis: No Hx Dementia: No Hx HIV: No Additional medical history: Chronic knee pain - Surgical History Hx Coronary Stent: No Hx Open Heart Surgery: No Hx Pacemaker: No Hx Internal Defibrillator: No Hx Cholecystectomy: No Hx Appendectomy: No Hx Breast Surgery: No Additional Surgical History: Right leg - Social History Smoking Status: Never Smoker Substance Use Type: None - Medications Home Medications: Home Medications Medication Instructions Recorded Confirmed Last Taken Type Montelukast [Singulair] 10 mg PO QPM #30 tablet 05/19/19 Unknown Rx Albuterol Mdi (or & Nicu Only) 2 puff IH QID PRN #8.5 gram 06/01/21 Unknown Rx [ProAir HFA Inhaler] Fluticasone/Salmeterol [Advair 1 puff IH BID #1 disk.w.dev 06/01/21 Unknown Rx Diskus 250-50 mcg] Prednisone [predniSONE 10 mg 10 mg PO .TAPER #1 tab.ds.pk 06/01/21 Unknown Rx (6-Day Pack, 21 Tabs)] predniSONE [Deltasone] 20 mg PO BID 5 Days #10 tab 08/16/21 Unknown Rx Albuterol Mdi (or & Nicu Only) 2 puff IH QID PRN 30 Days #8.5 gram 09/13/21 Unknown Rx [ProAir HFA Inhaler] Clindamycin [Clindamycin CAP] 300 mg PO Q8H #30 cap 10/05/21 Unknown Rx Ketorolac [Toradol] 10 mg PO Q8H PRN #20 tab 10/05/21 Unknown Rx traMADoL [Ultram] 50 mg PO Q6HR PRN #12 tablet 10/05/21 Unknown Rx ED Physical Exam - General Limitations: No Limitations General appearance: alert, in no apparent distress - Head Head exam: Present: atraumatic, normocephalic, normal inspection - Eye Eye exam: Present: normal appearance, PERRL, EOMI Pupils: Present: normal accommodation - ENT ENT exam: Present: mucous membranes moist, TM's normal bilaterally, normal external ear exam, other (Swollen, tender right mandibular gingiva with premolar and molar teeth tenderness) - Neck Neck exam: Present: normal inspection, full ROM, lymphadenopathy (Palpable anterior cervical lymphadenopathy) - Respiratory Respiratory exam: Present: normal lung sounds bilaterally. Absent: respiratory distress, wheezes, rales, rhonchi, chest wall tenderness, accessory muscle use, decreased breath sounds - Cardiovascular Cardiovascular Exam: Present: regular rate, normal rhythm, normal heart sounds. Absent: systolic murmur, diastolic murmur, rubs, gallop - GI/Abdominal GI/Abdominal exam: Present: soft, normal bowel sounds. Absent: tenderness, guarding, hyperactive bowel sounds, mass - Extremities Exam Extremities exam: Present: normal inspection, full ROM, normal capillary refill. Absent: tenderness - Back Exam Back exam: Present: normal inspection, full ROM. Absent: tenderness, CVA tenderness (R), CVA tenderness (L), muscle spasm, paraspinal tenderness, vertebral tenderness - Neurological Exam Neurological exam: Present: alert, oriented X3, CN II-XII intact, normal gait, reflexes normal - Psychiatric Psychiatric exam: Present: normal affect, normal mood - Skin Skin exam: Present: warm, dry, intact, normal color. Absent: rash ED Course Vital Signs 10/05/21 13:08 Temperature 98.3 F Pulse Rate 90 Respiratory 18 Rate Blood Pressure 140/88 [Right] O2 Sat by Pulse 95 Oximetry ED Medical Decision Making - Medical Decision Making This is a 51-year-old -Swiss male with a history of asthma presents to the ED with complaint of acute onset persistent painful swollen right mandibular gingiva with premolar molar toothache for the last 3 days, worse in the last 2 days. Patient states that he has not been able to eat anything in the last 24 hours because of worsening pain. Patient states that when he woke up about 12 hours ago the right mandibular swollen gingiva was worse. In the ED, patient is alert and oriented x3 and is not in any distress. Patient is hemodynamically stable. Patient was discharged home on pain medication antibiotics and advised to follow-up with his primary care physician or dentist in 7 to 10 days for reevaluation or return to the ED immediately if symptoms get worse - Differential Diagnosis Dental abscess; gingivitis; dental caries; lymphadenopathy Critical care attestation.: If time is entered above; I have spent that time in minutes in the direct care of this critically ill patient, excluding procedure time. ED Disposition Clinical Impression: Dental abscess, Acute gingivitis Disposition: HOME / SELF CARE / HOMELESS Is pt being admited?: No Does the pt Need Aspirin: No Condition: Stable Instructions: Dental Abscess, [id number], Trench Mouth Additional Instructions: Take medication with food, plenty of fluids and follow-up with your primary care physician or dentist in 7 to 10 days for reevaluation. Return to the ED immediately if symptoms get worse. Prescriptions: Clindamycin [Clindamycin CAP] 300 mg PO Q8H #30 cap Ketorolac [Toradol] 10 mg PO Q8H PRN #20 tab PRN Reason: Pain traMADoL [Ultram] 50 mg PO Q6HR PRN #12 tablet PRN Reason: Pain Referrals: [facility] [Outside] - 7-10 days Time of Disposition: 14:47 Print Language: CZECH
== END 2021-10-05 15:12 | disposition home or self-care (01) ==
LOC: ED 12:55
DX: K04.7 Periapical abscess without sinus (principal); K05.00 Acute gingivitis, plaque induced; J45.909 Unspecified asthma, uncomplicated; Z91.013 Allergy to seafood
CPT/HCPCS: 99282